=== PATIENT | female | born 1935 | race Caucasian/White ===

== ENCOUNTER 2019-01-29 14:19 | Inpatient (IN) | payer MEDICARE, BC ==
--- NOTE | 2019-01-29 15:02 | ED ---
General Adult HPI - General Chief complaint: Fall Stated complaint: Left hip injury Time Seen by Provider: 01/29/19 14:25 Source: patient, EMS, RN notes reviewed Mode of arrival: EMS Limitations: no limitations - History of Present Illness Initial comments: This is an 83-year-old female who presents to the emergency department complaining of left hip pain. Patient states she tripped and fell today and her left hip. Patient denies any head injury or neck injury. Patient denies any other area of pain. Patient states she's never had any problems with that hip in the past. But she is unable to move it now. EMS states that hip is externally rotated and shortened. - Related Data Home Medications Medication Instructions Recorded Confirmed Ascorbic Acid [Vitamin C] 1,000 mg PO HS 01/29/19 01/29/19 Aspirin EC [Ecotrin Low Dose] 81 mg PO HS 01/29/19 01/29/19 Cholecalciferol [Vitamin D3 (25 5,000 unit PO HS 01/29/19 01/29/19 Mcg = 1000 Iu)] INSULIN ASPART (NovoLOG) [NovoLOG 6 unit SQ AC-BID 01/29/19 01/29/19 (formulary)] INSULIN ASPART (NovoLOG) [NovoLOG 7 unit SQ AC-LUNCH 01/29/19 01/29/19 (formulary)] INSULIN ASPART (NovoLOG) [NovoLOG See Protocol SQ AC-TID PRN 01/29/19 01/29/19 (formulary)] Insulin Glargine [Lantus] 15 unit SQ HS 01/29/19 01/29/19 Metoprolol Tartrate [Lopressor] 12.5 mg PO HS 01/29/19 01/29/19 Simvastatin [Zocor] 20 mg PO HS 01/29/19 01/29/19 Allergies Allergy/AdvReac Type Severity Reaction Status Date / Time No Known Allergies Allergy Verified 01/29/19 15:16 Review of Systems ROS Statement: Those systems with pertinent positive or pertinent negative responses have been documented in the HPI. ROS Other: All systems not noted in ROS Statement are negative. Past Medical History Past Medical History: Atrial Fibrillation, Diabetes Mellitus, Hyperlipidemia, Hypertension History of Any Multi-Drug Resistant Organisms: None Reported Past Surgical History: Bladder Surgery Additional Past Surgical History / Comment(s): bladder suspension Past Psychological History: No Psychological Hx Reported Smoking Status: Never smoker Past Alcohol Use History: None Reported Past Drug Use History: None Reported General Exam - General Exam Comments Initial Comments: GENERAL: Patient is well-developed and well-nourished. Patient is nontoxic and well- hydrated and is in mild distress ENT: Neck is soft and supple. No significant lymphadenopathy is noted. Oropharynx is clear. Moist mucous membranes. Neck has full range of motion without eliciting any pain. EYES: The sclera were anicteric and conjunctiva were pink and moist. Extraocular movements were intact and pupils were equal round and reactive to light. Eyelids were unremarkable. PULMONARY: Unlabored respirations. Good breath sounds bilaterally. No audible rales rhonchi or wheezing was noted. CARDIOVASCULAR: There is a regular rate and rhythm without any murmurs gallops or rubs. ABDOMEN: Soft and nontender with normal bowel sounds. SKIN: Skin is clear with no lesions or rashes and otherwise unremarkable. NEUROLOGIC: Patient is alert and oriented x3. Cranial nerves II through XII are grossly intact. Motor and sensory are also intact. Normal speech, volume and content. Symmetrical smile. MUSCULOSKELETAL: Left hip is shortened and Rotated with any movement causes her quite a bit of pain. Palpation of the lateral aspect of the hip is also very tender. LYMPHATICS: No significant lymphadenopathy is noted PSYCHIATRIC: Normal psychiatric evaluation. Limitations: no limitations Course Vital Signs 01/29/19 01/29/19 14:23 17:26 Temperature 98 F 97.9 F Pulse Rate 71 72 Respiratory 18 18 Rate Blood Pressure 175/80 153/79 O2 Sat by Pulse 97 97 Oximetry Medical Decision Making - Medical Decision Making X-ray shows a left femoral neck fracture which is impacted. I spoke with the physician office manager executive assistant for [facility] and he agreed to admit the patient I admitted the patient wrote admitting orders I consulted Dr. Eagle EKG shows a normal sinus rhythm at 67 bpm MD interval is 188 QRS is 74 QT interval 36 QTC is 47. Patient's EKG shows no ST segment elevation or depression or T wave abnormalities are noted. - Lab Data Result diagrams: 01/29/19 15:50 01/29/19 15:50 Lab Results 01/29/19 01/29/19 01/29/19 Range/Units 15:50 15:50 15:50 WBC 7.8 (3.8-10.6) k/uL RBC 4.48 (3.80-5.40) m/uL Hgb 13.2 (11.4-16.0) gm/dL Hct 38.8 (34.0-46.0) % MCV 86.7 (80.0-100.0) fL MCH 29.4 (25.0-35.0) pg MCHC 33.9 (31.0-37.0) g/dL RDW 13.9 (11.5-15.5) % Plt Count 214 (150-450) k/uL Neutrophils % 74 % Lymphocytes % 14 % Monocytes % 8 % Eosinophils % 3 % Basophils % 1 % Neutrophils # 5.8 (1.3-7.7) k/uL Lymphocytes # 1.1 (1.0-4.8) k/uL Monocytes # 0.6 (0-1.0) k/uL Eosinophils # 0.2 (0-0.7) k/uL Basophils # 0.1 (0-0.2) k/uL PT 9.8 (9.0-12.0) sec INR 0.9 (<1.2) APTT 25.0 (22.0-30.0) sec Sodium 132 L (137-145) mmol/L Potassium 4.2 (3.5-5.1) mmol/L Chloride 99 (98-107) mmol/L Carbon Dioxide 25 (22-30) mmol/L Anion Gap 8 mmol/L BUN 18 H (7-17) mg/dL Creatinine 0.76 (0.52-1.04) mg/dL Est GFR (CKD-EPI)AfAm 86 (>60 ml/min/1.73 sqM) Est GFR (CKD-EPI)NonAf 74 (>60 ml/min/1.73 sqM) Glucose 98 (74-99) mg/dL Calcium 9.3 (8.4-10.2) mg/dL Total Bilirubin 0.4 (0.2-1.3) mg/dL AST 25 (14-36) U/L ALT 19 (9-52) U/L Alkaline Phosphatase 83 (38-126) U/L Total Protein 6.8 (6.3-8.2) g/dL Albumin 4.0 (3.5-5.0) g/dL Disposition Clinical Impression: Hip fracture Disposition: ADMITTED IP TO THIS [facility] Time of Disposition: 16:22
--- NOTE | 2019-01-29 15:10 | XR ---
EXAMINATION TYPE: XR Hip LT and AP Pelvis DATE OF EXAM: 01/29/2019 COMPARISON: NONE HISTORY: Pelvic and left hip pain after fall injury today. TECHNIQUE: A single AP view of the pelvis is obtained. Two views of the left hip are obtained. FINDINGS: There is acute subcapital fracture through proximal left femur with impaction of distal fr acture fragment. No hip joint dislocation is seen. Mild to moderate axial joint space loss both hips is present. Pubic symphysis is intact. Sacroiliac joints are preserved. IMPRESSION: There is acute subcapital fracture through left proximal humerus. (Initial encounter closed type post traumatic fracture)
--- NOTE | 2019-01-29 15:53 | XR ---
EXAMINATION TYPE: XR chest 1V portable DATE OF EXAM: 01/29/2019 COMPARISON: NONE HISTORY: Presurgical study. TECHNIQUE: Single AP portable frontal semiupright view of the chest is obtained. FINDINGS: There is chronic parenchymal change without suspicious focal air space opacity, pleural ef fusion, or pneumothorax seen. The cardiac silhouette size is mildly enlarged. The osseous structur es are demineralized. Underlying scoliosis in the thoracolumbar spine is present. IMPRESSION: Chronic parenchymal changes and cardiomegaly without acute pulmonary process.
[2019-01-29 15:59] LABS: Basophils # (A) 0.1 k/uL (0-0.2); Basophils % (A) 1 %; Eosinophils # (A) 0.2 k/uL (0-0.7); Eosinophils % (A) 3 %; HCT 38.8 % (34.0-46.0); HGB 13.2 gm/dL (11.4-16.0); Lymphocytes # (A) 1.1 k/uL (1.0-4.8); Lymphocytes % (A) 14 %; MCH 29.4 pg (25.0-35.0); MCHC 33.9 g/dL (31.0-37.0); MCV 86.7 fL (80.0-100.0); Mean Platelet Volume 7.7; Monocytes # (A) 0.6 k/uL (0-1.0); Monocytes % (A) 8 %; Neutrophils # (A) 5.8 k/uL (1.3-7.7); Neutrophils % (A) 74 %; Platelet Count 214 k/uL (150-450); RBC 4.48 m/uL (3.80-5.40); RDW 13.9 % (11.5-15.5); WBC 7.8 k/uL (3.8-10.6)
[2019-01-29 16:07] LABS: Calcium 9.3 mg/dL (8.4-10.2); Potassium 4.2 mmol/L (3.5-5.1); Total Bilirubin 0.4 mg/dL (0.2-1.3); Total Protein 6.8 g/dL (6.3-8.2)
[2019-01-29 16:09] LABS: INR 0.9 (<1.2); Prothrombin Time 9.8 sec (9.0-12.0)
[2019-01-29] MEDS ORDERED: SODIUM CHLORIDE 0.9% 1,000 ML IV ONE (16:22)
[2019-01-29 17:08] LABS: Glucose,Whole Blood 89 mg/dL (75-99)
[2019-01-29] MEDS: HYDROmorphone 0.5 MG/0.5 ML SYRINGE IVP PRN (18:06)
[2019-01-29 20:35] LABS: Glucose,Whole Blood 150 mg/dL (75-99)
[2019-01-30] MEDS: HYDROmorphone 0.5 MG/0.5 ML SYRINGE IVP PRN ×3 (01:37→21:31)
[2019-01-30 07:47] LABS: Glucose,Whole Blood 218 mg/dL (75-99)
[2019-01-30 07:55] LABS: Basophils % (A) 1 %; Eosinophils # (A) 0.2 k/uL (0-0.7); Eosinophils % (A) 3 %; HCT 36.9 % (34.0-46.0); HGB 12.3 gm/dL (11.4-16.0); Lymphocytes # (A) 0.8 k/uL (1.0-4.8); Lymphocytes % (A) 11 %; MCH 29.4 pg (25.0-35.0); MCHC 33.2 g/dL (31.0-37.0); MCV 88.6 fL (80.0-100.0); Mean Platelet Volume 7.9; Monocytes # (A) 0.6 k/uL (0-1.0); Monocytes % (A) 9 %; Neutrophils # (A) 5.5 k/uL (1.3-7.7); Neutrophils % (A) 76 %; Platelet Count 177 k/uL (150-450); RBC 4.17 m/uL (3.80-5.40); RDW 14.7 % (11.5-15.5); WBC 7.3 k/uL (3.8-10.6)
[2019-01-30 08:24] LABS: Albumin 3.3 g/dL (3.5-5.0); Calcium 8.7 mg/dL (8.4-10.2); Potassium 4.8 mmol/L (3.5-5.1); Total Bilirubin 1.1 mg/dL (0.2-1.3); Total Protein 5.9 g/dL (6.3-8.2)
--- NOTE | 2019-01-30 08:57 | P.HPOR ---
History of Present Illness H&P Date: 01/30/19 Chief Complaint: Left hip fracture Patient is an 83-year-old female seen at bedside this am. She presented to the emergency department yesterday complaining of left hip pain. Patient states she tripped and fell on her left hip. Patient denies any head injury or neck injury. Patient denies any other area of pain. Patient states she's never had any problems with that hip in the past. Xrays in the ED showed a left femoral neck fracture shortened and displaced. ROS are negative Review of Systems All systems: negative Constitutional: Denies chills, Denies fever Eyes: denies blurred vision, denies pain Ears, nose, mouth and throat: Denies headache, Denies sore throat Cardiovascular: Denies chest pain, Denies shortness of breath Respiratory: Denies cough Gastrointestinal: Denies abdominal pain, Denies diarrhea, Denies nausea, Denies vomiting Genitourinary: Denies dysuria, Denies hematuria Musculoskeletal: Denies myalgias Integumentary: Denies pruritus, Denies rash Neurological: Denies numbness, Denies weakness Psychiatric: Denies anxiety, Denies depression Endocrine: Denies fatigue, Denies weight change Past Medical History Past Medical History: Atrial Fibrillation, Diabetes Mellitus, Hyperlipidemia, Hypertension Additional Past Medical History / Comment(s): a-fib once 15 years ago, left hip fx History of Any Multi-Drug Resistant Organisms: None Reported Past Surgical History: Bladder Surgery Additional Past Surgical History / Comment(s): bladder suspension, heart cath 15 years ago Past Psychological History: No Psychological Hx Reported Smoking Status: Never smoker Past Alcohol Use History: None Reported Past Drug Use History: None Reported Medications and Allergies Home Medications Medication Instructions Recorded Confirmed Type Ascorbic Acid [Vitamin C] 1,000 mg PO HS 01/29/19 01/29/19 History Aspirin EC [Ecotrin Low Dose] 81 mg PO HS 01/29/19 01/29/19 History Cholecalciferol [Vitamin D3 (25 5,000 unit PO HS 01/29/19 01/29/19 History Mcg = 1000 Iu)] INSULIN ASPART (NovoLOG) [NovoLOG 6 unit SQ AC-BID 01/29/19 01/29/19 History (formulary)] INSULIN ASPART (NovoLOG) [NovoLOG 7 unit SQ AC-LUNCH 01/29/19 01/29/19 History (formulary)] INSULIN ASPART (NovoLOG) [NovoLOG See Protocol SQ AC-TID PRN 01/29/19 01/29/19 History (formulary)] Insulin Glargine [Lantus] 15 unit SQ HS 01/29/19 01/29/19 History Metoprolol Tartrate [Lopressor] 12.5 mg PO HS 01/29/19 01/29/19 History Simvastatin [Zocor] 20 mg PO HS 01/29/19 01/29/19 History Allergies Allergy/AdvReac Type Severity Reaction Status Date / Time No Known Allergies Allergy Verified 01/29/19 17:58 Physical Examination LLE Inspections shows a shortened and externally rotated left leg. Any movement causes her quite a bit of pain. ROM is not tested due to fracture. Palpation of the lateral aspect of the hip is also very tender. No wounds. NVI. Calf is SNT Results - Labs Labs: Abnormal Lab Results - Last 24 Hours (Table) 01/29/19 01/29/19 01/30/19 Range/Units 15:50 20:24 07:30 Lymphocytes # (1.0-4.8) k/uL Sodium 132 L (137-145) mmol/L Chloride (98-107) mmol/L BUN 18 H (7-17) mg/dL Glucose (74-99) mg/dL POC Glucose (mg/dL) 150 H 218 H (75-99) mg/dL Total Protein (6.3-8.2) g/dL Albumin (3.5-5.0) g/dL 01/30/19 01/30/19 Range/Units 07:36 07:36 Lymphocytes # 0.8 L (1.0-4.8) k/uL Sodium 129 L (137-145) mmol/L Chloride 97 L (98-107) mmol/L BUN (7-17) mg/dL Glucose 226 H (74-99) mg/dL POC Glucose (mg/dL) (75-99) mg/dL Total Protein 5.9 L (6.3-8.2) g/dL Albumin 3.3 L (3.5-5.0) g/dL H & H 01/29/19 01/30/19 Range/Units 15:50 07:36 Hgb 13.2 12.3 (11.4-16.0) gm/dL Hct 38.8 36.9 (34.0-46.0) % Coagulation 01/29/19 Range/Units 15:50 INR 0.9 (<1.2) Result Diagrams: 01/30/19 07:36 01/30/19 07:36 - Diagnostic results Hip x-ray: report reviewed, image reviewed Assessment and Plan (1) Hip fracture Narrative/Plan: Plan is to proceed with surgical intervention including a left hip hemiarthroplasy. Medical has been requested for pre op clearance. She has been NPO. Procedure and consent obtained. She would like to proceed. Current Visit: Yes Status: Acute Code(s): S72.009A - FRACTURE OF UNSP PART OF NECK OF UNSP FEMUR, INIT SNOMED Code(s): 862004651 Time with Patient: Less than 30
[2019-01-30] MEDS: INSULIN ASPART (NovoLOG) 100 UNIT/ML VIAL SQ SCH ×3 (09:46→21:31)
--- NOTE | 2019-01-30 12:00 | P.CONS ---
History of Present Illness - Reason for Consult Consult date: 01/30/19 medical management surgical clearance Requesting physician: Phil Drummond - History of Present Illness This is an 83-year-old female patient of Dr. Samuel. Patient presented to ER after sustaining a fall. Patient reports she was playing bridge when she tripped over some increased pain and landed on her left hip. Patient denies hitting her head or loss of consciousness. Patient denies any dizziness prior to episode. Hip x-ray completed showing acute subcapital fracture through left proximal humerus. Patient reports that she had episode of A. fib approximately 15 years ago. Patient reports that she was not placed on anticoagulation and never had an occurrence again. Additional history includes diabetes mellitus in which he follows with endocrinology, hyperlipidemia and hypertension. Patient denies any history of cardiac conditions. Patient denies history of CHF,COPD or asthma. Patient denies smoking. At this time patient denies any chest pain or shortness of breath. Patient denies nausea vomiting or diarrhea. Patient denies any urinary burning or frequency. Patient low grade temp of 99.9 throughout night this is likely reactive. Chest x-ray completed showing chronic parenchymal changes and cardiomegaly without acute pulmonary process. EKG completed showing some normal sinus rhythm voltage criteria for left ventricular hypertrophy. Urinary analysis has been ordered. orthopedic services have been consulted planning left hip gypsy arthroplasty today. Review of Systems Please refer to HPI otherwise unremarkable Past Medical History Past Medical History: Atrial Fibrillation, Diabetes Mellitus, Hyperlipidemia, Hypertension Additional Past Medical History / Comment(s): a-fib once 15 years ago, left hip fx History of Any Multi-Drug Resistant Organisms: None Reported Past Surgical History: Bladder Surgery Additional Past Surgical History / Comment(s): bladder suspension, heart cath 15 years ago Past Psychological History: No Psychological Hx Reported Smoking Status: Never smoker Past Alcohol Use History: None Reported Past Drug Use History: None Reported Medications and Allergies Home Medications Medication Instructions Recorded Confirmed Type Ascorbic Acid [Vitamin C] 1,000 mg PO HS 01/29/19 01/29/19 History Aspirin EC [Ecotrin Low Dose] 81 mg PO HS 01/29/19 01/29/19 History Cholecalciferol [Vitamin D3 (25 5,000 unit PO HS 01/29/19 01/29/19 History Mcg = 1000 Iu)] INSULIN ASPART (NovoLOG) [NovoLOG 6 unit SQ AC-BID 01/29/19 01/29/19 History (formulary)] INSULIN ASPART (NovoLOG) [NovoLOG 7 unit SQ AC-LUNCH 01/29/19 01/29/19 History (formulary)] INSULIN ASPART (NovoLOG) [NovoLOG See Protocol SQ AC-TID PRN 01/29/19 01/29/19 History (formulary)] Insulin Glargine [Lantus] 15 unit SQ HS 01/29/19 01/29/19 History Metoprolol Tartrate [Lopressor] 12.5 mg PO HS 01/29/19 01/29/19 History Simvastatin [Zocor] 20 mg PO HS 01/29/19 01/29/19 History Allergies Allergy/AdvReac Type Severity Reaction Status Date / Time No Known Allergies Allergy Verified 01/29/19 17:58 Physical Exam Vitals: Vital Signs Temp Pulse Pulse Resp BP BP Pulse Ox 01/30/19 07:00 98.7 F 69 13 123/68 94 L 01/30/19 01:02 99.9 F H 63 18 122/70 91 L 01/29/19 19:24 98.2 F 72 18 164/92 96 01/29/19 17:26 97.9 F 72 18 153/79 97 01/29/19 14:23 98 F 71 18 175/80 97 Intake and Output 01/29/19 01/30/19 01/30/19 22:59 06:59 14:59 Intake Total 250 Output Total 1600 500 500 Balance -1350 -500 -500 Intake: Oral 250 Output: Urine 1600 500 500 Other: Voiding Method Indwelling Catheter Indwelling Catheter Head normocephalic Neck supple Lungs clear to auscultation bilaterally no wheezing or crackles Heart regular rate and rhythm S1-S2, no rub or gallop Abdomen is soft nontender nondistended positive bowel sounds no hepatos plenomegaly Extremities no edema Neuro alert and orientated to 3 Results CBC & Chem 7: 01/30/19 07:36 01/30/19 07:36 Labs: Abnormal Lab Results - Last 24 Hours (Table) 01/29/19 01/29/19 01/30/19 Range/Units 15:50 20:24 07:30 Lymphocytes # (1.0-4.8) k/uL Sodium 132 L (137-145) mmol/L Chloride (98-107) mmol/L BUN 18 H (7-17) mg/dL Glucose (74-99) mg/dL POC Glucose (mg/dL) 150 H 218 H (75-99) mg/dL Total Protein (6.3-8.2) g/dL Albumin (3.5-5.0) g/dL 01/30/19 01/30/19 Range/Units 07:36 07:36 Lymphocytes # 0.8 L (1.0-4.8) k/uL Sodium 129 L (137-145) mmol/L Chloride 97 L (98-107) mmol/L BUN (7-17) mg/dL Glucose 226 H (74-99) mg/dL POC Glucose (mg/dL) (75-99) mg/dL Total Protein 5.9 L (6.3-8.2) g/dL Albumin 3.3 L (3.5-5.0) g/dL Assessment and Plan Assessment: 1. Left hip fracture status post fall. Surgical services planning left hip hemiarthroplasty 2. History of diabetes mellitus type 2. Home long-acting medication has been ordered along with sliding scale coverage. Patient reports she does follow with endocrinology. Last hemoglobin A1c 2 weeks ago 8.0 3. History of atrial fibrillation possibly 15 years ago. Patient reports this was an isolated incident did not require anticoagulation no further episodes. EKG completed in ER showing normal sinus rhythm. Voltage criteria for left ventricular hypertrophy 4. History of hyperlipidemia 5. History of essential hypertension 6. Low-grade fever. Chest x-ray completed in ER showing chronic parenchymal changes and cardiomegaly without acute pulmonary process. Urinary analysis has been ordered 7. Hyponatremia. Sodium low at 129. Continue normal saline at 50. We'll continue to monitor closely Thank you for this consultation we will continue to follow patient closely throughout stay Time with Patient: Greater than 30 (Greater than 60% of the total time spent in counseling and coordination of care. I performed an examination of the patient and discussed their management with the Nurse Practitioner. I have reviewed the Nurse Practitioner's notes and agree with the documented findings and plan of care)
[2019-01-30 12:14] LABS: Glucose,Whole Blood 169 mg/dL (75-99)
[2019-01-30 12:31] LABS: Appearance,Urine Clear (Clear); Bacteria,Urine Rare /hpf; Bilirubin,Urine Negative (Negative); Blood,Urine Trace (Negative); Color,Urine Light Yellow; Glucose,Urine (UA) 2+ (Negative); Leukocyte Esterase,Urine Small (Negative); Mucus,Urine Rare /hpf; Nitrite,Urine Negative (Negative); PH, Urine 5.5 (5.0-8.0); Protein,Urine Negative (Negative); RBC,Urine 3 /hpf (0-5); Squamous Epithelial Cell,Urine <1 /hpf (0-4); Urobilinogen,Urine <2.0 mg/dL (<2.0)
[2019-01-30 13:00] LABS: Ketones,Urine 2+ (Negative)
[2019-01-30] MEDS ORDERED: IV FLUID CONTINUATION 375 ML IV ONE (13:59)
[2019-01-30 14:28] LABS: Glucose,Whole Blood 169 mg/dL (75-99)
[2019-01-30] MEDS ORDERED: ceFAZolin 2 GM in SODIUM CHLORIDE 0.9% 100 ML IVPB ONE (15:07)
[2019-01-30] MEDS ORDERED: ceFAZolin IN SWFI 2 GM/20 ML SYRINGE IVP ONE (15:15)
[2019-01-30] MEDS ORDERED: KETAMINE 10 MG/ML 20 ML VIAL ONE (15:29)
[2019-01-30] MEDS ORDERED: fentaNYL (PF) 50 MCG/ML 2 ML AMP ONE (15:29)
[2019-01-30] MEDS ORDERED: MIDAZOLAM 2 MG/2 ML VIAL ONE (15:29)
[2019-01-30] MEDS ORDERED: NALOXONE 0.4 MG/ML 1 ML VIAL IV PRN (15:31)
[2019-01-30] MEDS ORDERED: MAGNESIUM HYDROXIDE 2,400 MG/10 ML CUP PO PRN (15:31)
[2019-01-30] MEDS ORDERED: DIAZEPAM 5 MG TAB PO PRN (15:31)
[2019-01-30] MEDS ORDERED: HYDROcodone/APAP 7.5-325MG 1 EACH TAB PO PRN (15:31)
[2019-01-30] MEDS ORDERED: HYDROmorphone 0.5 MG/0.5 ML SYRINGE IVP PRN ×3 (15:31)
[2019-01-30] MEDS ORDERED: TEMAZEPAM 15 MG CAP PO PRN (15:31)
[2019-01-30] MEDS ORDERED: ONDANSETRON 4 MG/2 ML VIAL IVP PRN (15:31)
[2019-01-30] MEDS ORDERED: LACTATED RINGERS 1,000 ML IV ONE (15:55)
[2019-01-30] MEDS ORDERED: ceFAZolin 3,000 MG in SODIUM CHLORIDE 0.9% IRRIGATIO 3,000 ML IRRIGATION ONE (16:04)
[2019-01-30 17:38] LABS: Glucose,Whole Blood 161 mg/dL (75-99)
[2019-01-30] MEDS: LACTATED RINGERS 1,000 ML IV SCH ×2 (18:11→20:24)
--- NOTE | 2019-01-30 18:11 | XR ---
PROCEDURE: XR Hip Limited LT - one view DATE AND TIME: 01/30/2019 5:39 PM CLINICAL INDICATION: PHH; Status post hip surgery, assess surgical alignment TECHNIQUE: Department protocol COMPARISON: None FINDINGS: Postoperative left hip AP view shows anatomic position and alignment of the left hip prosth esis. Postprocedure changes noted. No unexpected findings. IMPRESSION: Postoperative left hip one view
[2019-01-30 20:11] LABS: Glucose,Whole Blood 206 mg/dL (75-99)
[2019-01-30] MEDS: SENNOSIDES-DOCUSATE SODIUM 1 EACH TAB PO SCH (20:21)
[2019-01-30] MEDS: ASCORBIC ACID 500 MG TAB PO SCH (20:21)
[2019-01-30] MEDS: CHOLECALCIFEROL 1,000 UNIT TAB PO SCH (20:21)
[2019-01-30] MEDS: ASPIRIN 325 MG TAB PO SCH (20:21)
[2019-01-30] MEDS: ATORVASTATIN 10 MG TAB PO SCH (20:21)
[2019-01-30] MEDS ORDERED: METOPROLOL TARTRATE 12.5 MG TAB PO SCH (21:00)
[2019-01-30] MEDS: INSULIN DETEMIR (LEVEMIR) 100 UNIT/ML SYR SQ SCH (21:31)
[2019-01-30 21:37] LABS: Glucose,Whole Blood 212 mg/dL (75-99)
[2019-01-30] MEDS: ceFAZolin IN SWFI 2 GM/20 ML SYRINGE IVP SCH (23:31)
--- NOTE | 2019-01-31 01:09 | OP ---
OPERATIVE REPORT DATE OF PROCEDURE: 01/30/2019. PREOPERATIVE DIAGNOSIS: Left displaced femoral neck fracture. POSTOPERATIVE DIAGNOSIS: Left displaced femoral neck fracture. PROCEDURE PERFORMED: Left hip hemiarthroplasty. SURGEON: Phil Drummond MD. TANK CAR MECHANIC: Alfredito WATTS. ANESTHESIA: Spinal with sedation. ESTIMATED BLOOD LOSS: 100 mL. TOURNIQUET: None. DRAINS: None. COMPLICATIONS: None apparent. DISPOSITION: Postanesthesia care unit. INDICATIONS: Paris is a very pleasant 83-year-old female who was playing cards yesterday with her friends and tripped over another friend's cane and fell onto her left hip. She had immediate left hip pain. She was brought via ambulance to [facility]. Workup including x-rays revealed a left displaced femoral neck fracture. She was admitted to in. She does live independently. Recommendation was for a left hip hemiarthroplasty. She was cleared for surgery by the Internal Medicine service as well. The risks of the procedure were discussed with her in detail. These risks include, but are not limited to risk of infection, nerve damage, bleeding, pain, and a small risk of deep vein thrombosis which could lead to fatal pulmonary embolism. Further risks include instability, future instability in the hip and periprosthetic fracture. All of the risks were discussed with both Paris and her daughter. All of their questions were answered to their satisfaction. Appropriate informed consent was obtained. DESCRIPTION OF THE PROCEDURE: Patient identified in preop holding area. Surgical site was marked by both the patient and myself. She was given 2 g of Ancef IV for prophylactic purposes. She was then transported to the operative suite. She was placed supine on the operative table. A spinal anesthetic was then administered and dosed per the anesthesia without apparent complication. She was then placed into the right lateral decubitus position well- padded in preparation for surgery. A well-padded axillary roll was placed. Her legs were appropriately padded as well. The patient's left lower extremity then prepped and draped in usual sterile fashion. Standard surgical pause undertaken to ensure that we were operating the correct site and that appropriate preoperative antibiotics were given. All staff in the room in agreement we proceeded. The tip of the greater trochanter was identified. An approximate 10-12 cm incision centered over the greater trochanter in line with the femur was then marked surgical pen. The incision was then made with a 10 blade scalpel. Dissection carried down sharply to the tensor fascia. Hemostasis was achieved with electrocautery. The tensor fascia was then incised in line with the incision. This exposed the underlying trochanteric bursa. A Charnley retractor was then placed. The raphe between the anterior 1/3 and posterior 2/3 of the gluteus medius was identified. I then split the raphae between the anterior 3rd and posterior 2/3 of the gluteus medius and then down the lateral aspect of the femur for anterolateral Hardinge type approach. This exposed the capsule was then incised as well. This exposed the femoral neck fracture. I then utilized a reciprocating saw to freshen the femoral neck cut. The guide was utilized to a template the cut. I then utilized the corkscrew to remove the solomon femoral head. This was measured as a size 45. The acetabulum was then thoroughly inspected. The acetabular cartilage was in excellent condition. There was no evidence of fracture. There were no loose bodies noted within the acetabulum. I then utilized a size 45 trial. This was placed on the lollipop. Had an excellent suction fit within the acetabulum. I then proceeded with preparation of the proximal femur. The leg was then flexed, externally rotated or across the table. This exposed the proximal femur. I utilized a box spring frame builder to gain entrance to the femoral canal. Starting reamer was then utilized. I then reamed the femoral canal starting with a size 7 up to a size 9 reamer. I then proceeded with broaching the proximal femur. I started with a size 7 broach and incrementally increased up to a size 9 broach. This had an excellent fit. I then proceeded with trialing. I started with a -3 neck and a 45 monopolar head. This was placed onto the broach and then the hip was reduced. It was very stable throughout a full range of motion. The leg lengths were approximately equal. There was very minimal Shuck. Again, it was stable throughout a full range of motion. The hip was then redislocated very carefully. I decided to go forward with a -3 neck 9 stem and a 45 monopolar head. The [employer] personnel representative then opened a Bimetric collared size 9 stem, a -3 neck and a 45 monopolar head. The stem was then impacted into the canal in approximately 10-15 degrees of anteversion. An excellent fit. The minus the Alberts taper was then placed onto the head on the back table and then it was impacted onto a dried stem. The head was then impacted into place. The hip was then reduced. Again, the leg lengths were approximately equal. It was taken through full range of motion. It was very stable. There was very minimal Shuck. We then proceeded with closure. The wound was thoroughly irrigated with sterile saline solution with antibiotic added via pulse lavage. Again, hemostasis was achieved with electrocautery. The gluteus medius, gluteus minimus and anterior capsule were then repaired back to the anterolateral greater trochanter with #5 transosseous Ethibond sutures. The raphae between the anterior 3rd and posterior 2/3 of the gluteus medius were then was then closed with a 0-Vicryl interrupted suture. The Charnley retractor was then removed. The tensor fascia was then repaired with a running #3 Quill suture. Again the wound was thoroughly irrigated with sterile saline solution with antibiotic added. The subcutaneous tissue was closed with 2-0 Vicryl interrupted suture. The skin was closed with a running 3-0 Quill suture. Dermabond was then applied to the incision. Sterile compressive dressing was then applied. The patient's lower extremities were then placed into a hip abduction pillow. All sponge and needle counts were deemed correct prior to closure. The patient tolerated the procedure without apparent complication. She was transferred recovery room in stable conditions. YELENA / PRAVIN: [id number] /
[2019-01-31] MEDS: HYDROmorphone 0.5 MG/0.5 ML SYRINGE IVP PRN ×2 (01:43→07:16)
[2019-01-31 07:13] LABS: Glucose,Whole Blood 188 mg/dL (75-99)
[2019-01-31] MEDS: INSULIN ASPART (NovoLOG) 100 UNIT/ML VIAL SQ SCH ×4 (07:21→20:52)
[2019-01-31 08:53] LABS: Basophils % (A) 0 %; Eosinophils # (A) 0.1 k/uL (0-0.7); Eosinophils % (A) 1 %; HCT 28.8 % (34.0-46.0); Lymphocytes # (A) 0.7 k/uL (1.0-4.8); Lymphocytes % (A) 9 %; MCH 29.8 pg (25.0-35.0); MCHC 33.6 g/dL (31.0-37.0); MCV 88.7 fL (80.0-100.0); Monocytes # (A) 0.8 k/uL (0-1.0); Monocytes % (A) 10 %; Neutrophils # (A) 6.3 k/uL (1.3-7.7); Neutrophils % (A) 78 %; Platelet Count 169 k/uL (150-450); RBC 3.25 m/uL (3.80-5.40); RDW 14.7 % (11.5-15.5)
[2019-01-31 08:59] LABS: Albumin 2.5 g/dL (3.5-5.0); Potassium 4.3 mmol/L (3.5-5.1); Total Bilirubin 0.7 mg/dL (0.2-1.3); Total Protein 4.8 g/dL (6.3-8.2)
[2019-01-31 09:02] LABS: HGB 9.7 gm/dL (11.4-16.0)
[2019-01-31] MEDS: traMADol 50 MG TAB PO PRN ×2 (09:16→14:25)
[2019-01-31] MEDS: ASPIRIN 325 MG TAB PO SCH (09:17)
[2019-01-31] MEDS: ceFAZolin IN SWFI 2 GM/20 ML SYRINGE IVP SCH (09:17)
--- NOTE | 2019-01-31 09:59 | P.PN ---
Subjective Progress Note Date: 01/31/19 Principal diagnosis: S/P left hip hemiarthroplasty for left hip fracture Patient is seen at bedside this morning. She is postop day #1 from left hip hemiarthroplasty. She has pain at the surgical site as expected but denies any new complaints. She denies numbness, tingling or calf pain. Review of systems is negative for fever, chills, chest pain, shortness of breath or other Objective - Vital Signs Vital signs: Vital Signs Temp 99.3 F 01/31/19 07:35 Pulse 126 H 01/31/19 07:35 Resp 16 01/31/19 07:35 BP 103/76 01/31/19 07:35 Pulse Ox 93 L 01/31/19 07:35 Intake & Output 01/30/19 01/31/19 01/31/19 18:59 06:59 18:59 Intake Total 1776 300 Output Total 1050 350 Balance 726 -50 Intake: IV 976 Intake, IV Titration 600 300 Amount Lactated Ringers 1,000 ml 300 @ 50 mls/hr IV .Q20H [facility] Rx#:[id number] Sodium Chloride 0.9% 1, 600 000 ml @ 75 mls/hr IV . [id number] ONE Rx#:[id number] Oral 200 Output: Urine 950 350 Estimated Blood Loss 100 Other: Voiding Method Indwelling Catheter Indwelling Catheter Indwelling Catheter - Exam Inspection reveals a benign surgical wound. There is no active bleeding or drainage. Neurovascular status is intact throughout the lower extremity with motor and sensation fully intact. Calf is soft and nontender. 2+ dorsalis pedis pulse and less than 2 second cap refill is present. - Constitutional General appearance: Present: no acute distress - Labs CBC & Chem 7: 01/31/19 08:28 01/31/19 08:28 Labs: Abnormal Lab Results - Last 24 Hours (Table) 01/30/19 01/30/19 01/30/19 Range/Units 11:45 12:00 14:24 RBC (3.80-5.40) m/uL Hgb (11.4-16.0) gm/dL Hct (34.0-46.0) % Lymphocytes # (1.0-4.8) k/uL Sodium (137-145) mmol/L Chloride (98-107) mmol/L Carbon Dioxide (22-30) mmol/L BUN (7-17) mg/dL Glucose (74-99) mg/dL POC Glucose (mg/dL) 169 H 169 H (75-99) mg/dL Calcium (8.4-10.2) mg/dL Total Protein (6.3-8.2) g/dL Albumin (3.5-5.0) g/dL Urine Glucose (UA) 2+ H (Negative) Urine Ketones 2+ H (Negative) Urine Blood Trace H (Negative) Ur Leukocyte Esterase Small H (Negative) Urine WBC 9 H (0-5) /hpf Urine Bacteria Rare H (None) /hpf Urine Mucus Rare H (None) /hpf 01/30/19 01/30/19 01/30/19 Range/Units 17:34 20:10 21:25 RBC (3.80-5.40) m/uL Hgb (11.4-16.0) gm/dL Hct (34.0-46.0) % Lymphocytes # (1.0-4.8) k/uL Sodium (137-145) mmol/L Chloride (98-107) mmol/L Carbon Dioxide (22-30) mmol/L BUN (7-17) mg/dL Glucose (74-99) mg/dL POC Glucose (mg/dL) 161 H 206 H 212 H (75-99) mg/dL Calcium (8.4-10.2) mg/dL Total Protein (6.3-8.2) g/dL Albumin (3.5-5.0) g/dL Urine Glucose (UA) (Negative) Urine Ketones (Negative) Urine Blood (Negative) Ur Leukocyte Esterase (Negative) Urine WBC (0-5) /hpf Urine Bacteria (None) /hpf Urine Mucus (None) /hpf 01/31/19 01/31/19 01/31/19 Range/Units 06:58 08:28 08:28 RBC 3.25 L (3.80-5.40) m/uL Hgb 9.7 L D (11.4-16.0) gm/dL Hct 28.8 L (34.0-46.0) % Lymphocytes # 0.7 L (1.0-4.8) k/uL Sodium 124 L (137-145) mmol/L Chloride 97 L (98-107) mmol/L Carbon Dioxide 20 L (22-30) mmol/L BUN 20 H (7-17) mg/dL Glucose 324 H (74-99) mg/dL POC Glucose (mg/dL) 188 H (75-99) mg/dL Calcium 8.0 L (8.4-10.2) mg/dL Total Protein 4.8 L (6.3-8.2) g/dL Albumin 2.5 L (3.5-5.0) g/dL Urine Glucose (UA) (Negative) Urine Ketones (Negative) Urine Blood (Negative) Ur Leukocyte Esterase (Negative) Urine WBC (0-5) /hpf Urine Bacteria (None) /hpf Urine Mucus (None) /hpf Assessment and Plan (1) Hip fracture Narrative/Plan: She will continue with routine postop orthopedic protocol including pain management, wound care, PT, DVT prophylaxis and medical management. Expect that she will transfer to ECF in next few days Current Visit: Yes Status: Acute Code(s): S72.009A - FRACTURE OF UNSP PART OF NECK OF UNSP FEMUR, INIT SNOMED Code(s): 441488507 Time with Patient: Less than 30
--- NOTE | 2019-01-31 10:22 | P.PN ---
Subjective Progress Note Date: 01/31/19 This is an 83-year-old female patient of Dr. Samuel. Patient presented to ER after sustaining a fall. Patient reports she was playing bridge when she tripped over some increased pain and landed on her left hip. Patient denies hitting her head or loss of consciousness. Patient denies any dizziness prior to episode. Hip x-ray completed showing acute subcapital fracture through left proximal humerus. Patient reports that she had episode of A. fib approximately 15 years ago. Patient reports that she was not placed on anticoagulation and never had an occurrence again. Additional history includes diabetes mellitus in which he follows with endocrinology, hyperlipidemia and hypertension. Patient denies any history of cardiac conditions. Patient denies history of CHF,COPD or asthma. Patient denies smoking. At this time patient denies any chest pain or shortness of breath. Patient denies nausea vomiting or diarrhea. Patient denies any urinary burning or frequency. Patient low grade temp of 99.9 throughout night this is likely reactive. Chest x-ray completed showing chronic parenchymal changes and cardiomegaly without acute pulmonary process. EKG completed showing some normal sinus rhythm voltage criteria for left ventricular hypertrophy. Urinary analysis has been ordered. orthopedic services have been consulted planning left hip gypsy arthroplasty today. On 01/31/2019 patient is alert and oriented 3. Patient reports she feels well after surgery. Upon auscultation patient was found to have elevated heart rate possibly irregular. EKG has been ordered orders for telemetry placed. EKG that was completed yesterday showed normal sinus rhythm. Patient denies any feeling of palpitations or heart racing. Patient denies shortness of breath. Patient's sodium also at 124 continue normal saline at 75. At this time patient denies nausea vomiting or diarrhea. Patient denies chest pain or shortness of breath. Patient denies any urinary burning or frequency. Objective - Vital Signs Vital signs: Vital Signs Temp 99.3 F 01/31/19 07:35 Pulse 126 H 01/31/19 07:35 Resp 16 01/31/19 07:35 BP 103/76 01/31/19 07:35 Pulse Ox 93 L 01/31/19 07:35 Intake & Output 01/30/19 01/31/19 01/31/19 18:59 06:59 18:59 Intake Total 1776 300 Output Total 1050 350 Balance 726 -50 Intake: IV 976 Intake, IV Titration 600 300 Amount Lactated Ringers 1,000 ml 300 @ 50 mls/hr IV .Q20H [facility] Rx#:[id number] Sodium Chloride 0.9% 1, 600 000 ml @ 75 mls/hr IV . [id number] [facility] Rx#:[id number] Oral 200 Output: Urine 950 350 Estimated Blood Loss 100 Other: Voiding Method Indwelling Catheter Indwelling Catheter Indwelling Catheter - Exam Head normocephalic Neck supple Lungs clear to auscultation bilaterally no wheezing or crackles Heart Irregular elevated HR Abdomen is soft nontender nondistended positive bowel sounds no hepatosplenomegaly Extremities no edema. Left hip dressing clean dry and intact Neuro alert and orientated to 3 - Labs CBC & Chem 7: 01/31/19 08:28 01/31/19 08:28 Labs: Abnormal Lab Results - Last 24 Hours (Table) 01/30/19 01/30/19 01/30/19 Range/Units 11:45 12:00 14:24 RBC (3.80-5.40) m/uL Hgb (11.4-16.0) gm/dL Hct (34.0-46.0) % Lymphocytes # (1.0-4.8) k/uL Sodium (137-145) mmol/L Chloride (98-107) mmol/L Carbon Dioxide (22-30) mmol/L BUN (7-17) mg/dL Glucose (74-99) mg/dL POC Glucose (mg/dL) 169 H 169 H (75-99) mg/dL Calcium (8.4-10.2) mg/dL Total Protein (6.3-8.2) g/dL Albumin (3.5-5.0) g/dL Urine Glucose (UA) 2+ H (Negative) Urine Ketones 2+ H (Negative) Urine Blood Trace H (Negative) Ur Leukocyte Esterase Small H (Negative) Urine WBC 9 H (0-5) /hpf Urine Bacteria Rare H (None) /hpf Urine Mucus Rare H (None) /hpf 01/30/19 01/30/19 01/30/19 Range/Units 17:34 20:10 21:25 RBC (3.80-5.40) m/uL Hgb (11.4-16.0) gm/dL Hct (34.0-46.0) % Lymphocytes # (1.0-4.8) k/uL Sodium (137-145) mmol/L Chloride (98-107) mmol/L Carbon Dioxide (22-30) mmol/L BUN (7-17) mg/dL Glucose (74-99) mg/dL POC Glucose (mg/dL) 161 H 206 H 212 H (75-99) mg/dL Calcium (8.4-10.2) mg/dL Total Protein (6.3-8.2) g/dL Albumin (3.5-5.0) g/dL Urine Glucose (UA) (Negative) Urine Ketones (Negative) Urine Blood (Negative) Ur Leukocyte Esterase (Negative) Urine WBC (0-5) /hpf Urine Bacteria (None) /hpf Urine Mucus (None) /hpf 01/31/19 01/31/19 01/31/19 Range/Units 06:58 08:28 08:28 RBC 3.25 L (3.80-5.40) m/uL Hgb 9.7 L D (11.4-16.0) gm/dL Hct 28.8 L (34.0-46.0) % Lymphocytes # 0.7 L (1.0-4.8) k/uL Sodium 124 L (137-145) mmol/L Chloride 97 L (98-107) mmol/L Carbon Dioxide 20 L (22-30) mmol/L BUN 20 H (7-17) mg/dL Glucose 324 H (74-99) mg/dL POC Glucose (mg/dL) 188 H (75-99) mg/dL Calcium 8.0 L (8.4-10.2) mg/dL Total Protein 4.8 L (6.3-8.2) g/dL Albumin 2.5 L (3.5-5.0) g/dL Urine Glucose (UA) (Negative) Urine Ketones (Negative) Urine Blood (Negative) Ur Leukocyte Esterase (Negative) Urine WBC (0-5) /hpf Urine Bacteria (None) /hpf Urine Mucus (None) /hpf Assessment and Plan Assessment: 1. Left hip fracture status post fall. Status post left hip hemiarthroplasty. Patient on aspirin 325 twice a day for DVT prophylaxis for surgery pain meds per with surgery 2. New-onset A. fib with RVR. Patient does reports she had incident of A. fib proximally 15 years ago at that time patient was not started on medication anticoagulation. Per nursing staff EKG showing A. fib with RVR heart rate in the 120s. Patient is asymptomatic. Will consult cardiology services. TSH and magnesium level have been ordered 3. History of diabetes mellitus type 2. Home long-acting medication has been ordered along with sliding scale coverage. Patient reports she does follow with endocrinology. Last hemoglobin A1c 2 weeks ago 8.0 4. History of atrial fibrillation possibly 15 years ago. Patient reports this was an isolated incident did not require anticoagulation no further episodes. EKG completed in ER showing normal sinus rhythm. Voltage criteria for left ventricular hypertrophy 5. History of hyperlipidemia 6. History of essential hypertension 7. Urinary tract infection. UA showing small amount of leukocyte Estrace. Patients are Rocephin. Urine culture ordered 8. Hyponatremia. Sodium low at 124. Continue normal saline at 75 Thank you for this consultation we will continue to follow patient closely throughout stay I performed an examination of the patient and discussed their management with the Nurse Practitioner. I have reviewed the Nurse Practitioner's notes and agree with the documented findings and plan of care
[2019-01-31] MEDS ORDERED: METOPROLOL TARTRATE 12.5 MG TAB PO STA (10:59)
[2019-01-31] MEDS ORDERED: SODIUM CHLORIDE 0.9% 500 ML 500 ML IV ONE (11:00)
[2019-01-31 11:33] LABS: Glucose,Whole Blood 278 mg/dL (75-99)
--- NOTE | 2019-01-31 12:28 | CONS ---
CONSULTATION Mrs. Giron is an 83-year-old female with history of hypertension, hyperlipidemia, diabetes mellitus, who has been followed by Dr. Dilcia Lopez who had a fall and fractured hip. She underwent surgical intervention by Dr. Drummond yesterday. Today, she was noted to be in atrial fibrillation with rapid ventricular response. The patient had an episode of atrial fibrillation about 15 years ago then went back in sinus mechanism. She is usually active physically, has seen Dr. Lopez in August and according to her she had a myocardial perfusion imaging and echocardiogram. They were unremarkable. She denies any significant dyspnea on exertion. No dizziness. No palpitation. No chest discomfort. No PND, orthopnea, or peripheral edema. She was not aware of the atrial fibrillation today. The patient was not anticoagulated in the past. Her coronary risk factors are remarkable for hypertension, hyperlipidemia, and diabetes mellitus. She is a nonsmoker. MEDICATIONS: Her medications at the time of admission included simvastatin 20 mg daily, metoprolol tartrate 12.5 mg at bedtime, insulin, aspirin once a day, and vitamin C. REVIEW OF SYSTEMS: RESPIRATORY SYSTEM: She has no documented history of asthma, emphysema or bronchitis. GI SYSTEM: No recent GI bleeding. No peptic ulcer disease. SYSTEM: No dysuria or hematuria. NERVOUS SYSTEM: No stroke or seizure. PHYSICAL EXAMINATION: She is an 83-year-old female, alert, oriented, in no apparent distress. Blood pressure 103/70 with the heart rate in the 120s. HEAD: Normocephalic. EYES: Sclerae nonicteric. NECK: Good upstroke. No bruit. No jugular venous distention. LUNGS: Clear to auscultation. HEART: Irregular, irregular. S1, S2. No S3. No rub with a systolic murmur. ABDOMEN: Soft, nontender. Positive bowel sounds. No organomegaly. EXTREMITIES: No edema. Intact distal pulses. LAB DATA: Initial EKG performed on the revealed a sinus mechanism with left ventricular hypertrophy and nonspecific ST-T wave changes. Her repeat EKG performed today revealed an atrial fibrillation with a rapid ventricular response rate of [address]- T wave changes. Her BUN and creatinine 20 and 0.78. Potassium 4.3. Hemoglobin of 9.7. Sodium is 124. IMPRESSION: 1. Atrial fibrillation, new onset, not documented on presentation. The patient had an episode of atrial fibrillation according to her 15 years ago without any recurrence. 2. Status post fall and status post left hip hemiarthroplasty. 3. History of hypotension in the past. 4. Hyperlipidemia. 5. Diabetes mellitus. RECOMMENDATION: I will increase the dose of her beta gwyn to control ventricular response. I will start her on anticoagulation in the form of Eliquis 5 mg twice a day, I will stop her aspirin. I will obtain echocardiogram with Doppler as well as evaluation of her thyroid function test. We will keep a close eye on her sodium. She is not on any diuretic at this time. Depending on her progress, further recommendation will be made. Thank you for this consult. We will follow with you. MMMARKELL / IJN: [id number] /
[2019-01-31] MEDS: MULTIVITAMINS, THERA 1 EACH TAB PO SCH (12:33)
[2019-01-31] MEDS: APIXABAN 5 MG TAB PO SCH ×2 (14:16→21:09)
[2019-01-31] MEDS: METOPROLOL TARTRATE 25 MG TAB PO SCH ×2 (15:55→23:00)
[2019-01-31 16:37] LABS: Glucose,Whole Blood 247 mg/dL (75-99)
[2019-01-31] MEDS: HYDROcodone/APAP 7.5-325MG 1 EACH TAB PO PRN (17:51)
[2019-01-31 19:06] LABS: Iron Saturation 17.69 (12.00-45.00)
[2019-01-31 20:36] LABS: Glucose,Whole Blood 245 mg/dL (75-99)
[2019-01-31] MEDS: SENNOSIDES-DOCUSATE SODIUM 1 EACH TAB PO SCH (20:52)
[2019-01-31] MEDS: ASCORBIC ACID 500 MG TAB PO SCH (20:52)
[2019-01-31] MEDS: CHOLECALCIFEROL 1,000 UNIT TAB PO SCH (20:52)
[2019-01-31] MEDS: ATORVASTATIN 10 MG TAB PO SCH (20:52)
[2019-01-31] MEDS: INSULIN DETEMIR (LEVEMIR) 100 UNIT/ML SYR SQ SCH (20:53)
[2019-02-01] MEDS ORDERED: SODIUM CHLORIDE 0.9% 500 ML 200 ML IV ONE (06:24)
[2019-02-01 06:50] LABS: Glucose,Whole Blood 212 mg/dL (75-99)
[2019-02-01] MEDS: INSULIN ASPART (NovoLOG) 100 UNIT/ML VIAL SQ SCH ×5 (07:40→20:19)
[2019-02-01] MEDS: APIXABAN 5 MG TAB PO SCH ×2 (07:41→20:21)
[2019-02-01] MEDS: HYDROcodone/APAP 7.5-325MG 1 EACH TAB PO PRN ×3 (08:02→22:11)
[2019-02-01] MEDS: METOPROLOL TARTRATE 25 MG TAB PO SCH ×2 (08:02→22:17)
[2019-02-01 08:42] LABS: Basophils % (A) 0 %; Eosinophils # (A) 0.2 k/uL (0-0.7); Eosinophils % (A) 2 %; HCT 24.7 % (34.0-46.0); HGB 8.5 gm/dL (11.4-16.0); Lymphocytes # (A) 0.9 k/uL (1.0-4.8); Lymphocytes % (A) 10 %; MCH 30.1 pg (25.0-35.0); MCHC 34.4 g/dL (31.0-37.0); MCV 87.5 fL (80.0-100.0); Mean Platelet Volume 7.7; Monocytes % (A) 11 %; Neutrophils # (A) 6.7 k/uL (1.3-7.7); Neutrophils % (A) 75 %; Platelet Count 152 k/uL (150-450); RBC 2.82 m/uL (3.80-5.40); RDW 13.6 % (11.5-15.5); WBC 8.9 k/uL (3.8-10.6)
[2019-02-01 08:55] LABS: ALT 11 U/L (9-52); AST 19 U/L (14-36); African American GFR (CKD) >90 (>60 ml/min/1.73 sqM); Albumin 2.5 g/dL (3.5-5.0); Alkaline Phosphatase 57 U/L (38-126); Anion Gap 6 mmol/L; Blood Urea Nitrogen 17 mg/dL (7-17); Calcium 7.8 mg/dL (8.4-10.2); Carbon Dioxide 22 mmol/L (22-30); Chloride 96 mmol/L (98-107); Glucose 271 mg/dL (74-99); Magnesium 1.7 mg/dL (1.6-2.3); Potassium 4.9 mmol/L (3.5-5.1); Sodium 124 mmol/L (137-145); Total Bilirubin 0.6 mg/dL (0.2-1.3); Total Protein 4.7 g/dL (6.3-8.2)
--- NOTE | 2019-02-01 09:49 | P.PN ---
Subjective Progress Note Date: 02/01/19 Principal diagnosis: S/P left hip hemiarthroplasty for left hip fracture Patient is seen at bedside this morning. She is postop day #2 from left hip hemiarthroplasty. She has pain at the surgical site as expected but denies any new complaints. She had afib yesterday and is being managed by cardiology. She is currently stable. She denies numbness, tingling or calf pain. Review of systems is negative for fever, chills, chest pain, shortness of breath or other Objective - Vital Signs Vital signs: Vital Signs Temp 98.5 F 02/01/19 07:42 Pulse 71 02/01/19 07:42 Resp 14 02/01/19 07:42 BP 98/63 02/01/19 07:42 Pulse Ox 97 02/01/19 07:42 Intake & Output 01/31/19 02/01/19 02/01/19 18:59 06:59 18:59 Intake Total 1140 296 Output Total 75 1100 Balance 1065 -1100 296 Intake: IV 900 Sodium Chloride 0.9% 500 500 ml 500 ml @ 999 mls/hr IV .Q31M [facility] Rx#:[id number] cefTRIAXone 1 gm In 400 Sodium Chloride 0.9% 50 ml @ 100 mls/hr IVPB Q24HR [facility] Rx#:[id number] Oral 240 296 Output: Urine 75 1100 Other: Voiding Method Indwelling Catheter Indwelling Catheter - Exam Inspection reveals a benign surgical wound. There is no active bleeding or drainage. Neurovascular status is intact throughout the lower extremity with motor and sensation fully intact. Calf is soft and nontender. 2+ dorsalis pedis pulse and less than 2 second cap refill is present. - Constitutional General appearance: Present: no acute distress - Labs CBC & Chem 7: 02/01/19 07:56 02/01/19 07:56 Labs: Abnormal Lab Results - Last 24 Hours (Table) 01/30/19 01/31/19 01/31/19 Range/Units 07:36 11:22 16:35 RBC (3.80-5.40) m/uL Hgb (11.4-16.0) gm/dL Hct (34.0-46.0) % Lymphocytes # (1.0-4.8) k/uL Sodium (137-145) mmol/L Chloride (98-107) mmol/L Glucose (74-99) mg/dL POC Glucose (mg/dL) 278 H 247 H (75-99) mg/dL Calcium (8.4-10.2) mg/dL Iron 46 L (50-170) ug/dL Total Protein (6.3-8.2) g/dL Albumin (3.5-5.0) g/dL 01/31/19 02/01/19 02/01/19 Range/Units 20:25 06:49 07:56 RBC 2.82 L (3.80-5.40) m/uL Hgb 8.5 L (11.4-16.0) gm/dL Hct 24.7 L (34.0-46.0) % Lymphocytes # 0.9 L (1.0-4.8) k/uL Sodium (137-145) mmol/L Chloride (98-107) mmol/L Glucose (74-99) mg/dL POC Glucose (mg/dL) 245 H 212 H (75-99) mg/dL Calcium (8.4-10.2) mg/dL Iron (50-170) ug/dL Total Protein (6.3-8.2) g/dL Albumin (3.5-5.0) g/dL 02/01/19 Range/Units 07:56 RBC (3.80-5.40) m/uL Hgb (11.4-16.0) gm/dL Hct (34.0-46.0) % Lymphocytes # (1.0-4.8) k/uL Sodium 124 L (137-145) mmol/L Chloride 96 L (98-107) mmol/L Glucose 271 H (74-99) mg/dL POC Glucose (mg/dL) (75-99) mg/dL Calcium 7.8 L (8.4-10.2) mg/dL Iron (50-170) ug/dL Total Protein 4.7 L (6.3-8.2) g/dL Albumin 2.5 L (3.5-5.0) g/dL Microbiology - Last 24 Hours (Table) 01/31/19 10:00 Urine Culture - Preliminary Urine,Catheterized Assessment and Plan (1) Hip fracture Narrative/Plan: She will continue with routine postop orthopedic protocol including pain management, wound care, PT, DVT prophylaxis and medical management. Expect that she will transfer to ECF today or tomorrow if ok with IM and cardiology. Current Visit: Yes Status: Acute Code(s): S72.009A - FRACTURE OF UNSP PART OF NECK OF UNSP FEMUR, INIT SNOMED Code(s): 485061261 Time with Patient: Less than 30
--- NOTE | 2019-02-01 11:18 | P.PN ---
Subjective Progress Note Date: 02/01/19 This is an 83-year-old female patient of Dr. Samuel. Patient presented to ER after sustaining a fall. Patient reports she was playing bridge when she tripped over some increased pain and landed on her left hip. Patient denies hitting her head or loss of consciousness. Patient denies any dizziness prior to episode. Hip x-ray completed showing acute subcapital fracture through left proximal humerus. Patient reports that she had episode of A. fib approximately 15 years ago. Patient reports that she was not placed on anticoagulation and never had an occurrence again. Additional history includes diabetes mellitus in which he follows with endocrinology, hyperlipidemia and hypertension. Patient denies any history of cardiac conditions. Patient denies history of CHF,COPD or asthma. Patient denies smoking. At this time patient denies any chest pain or shortness of breath. Patient denies nausea vomiting or diarrhea. Patient denies any urinary burning or frequency. Patient low grade temp of 99.9 throughout night this is likely reactive. Chest x-ray completed showing chronic parenchymal changes and cardiomegaly without acute pulmonary process. EKG completed showing some normal sinus rhythm voltage criteria for left ventricular hypertrophy. Urinary analysis has been ordered. orthopedic services have been consulted planning left hip gypsy arthroplasty today. On 01/31/2019 patient is alert and oriented 3. Patient reports she feels well after surgery. Upon auscultation patient was found to have elevated heart rate possibly irregular. EKG has been ordered orders for telemetry placed. EKG that was completed yesterday showed normal sinus rhythm. Patient denies any feeling of palpitations or heart racing. Patient denies shortness of breath. Patient's sodium also at 124 continue normal saline at 75. At this time patient denies nausea vomiting or diarrhea. Patient denies chest pain or shortness of breath. Patient denies any urinary burning or frequency. On 02/01/2019 patient alert and oriented 3. Patient was found to be in A. fib with RVR yesterday. Cardiology consulted patient started on eliquis. Patient's sodium remains low despite fluid at 124. Patient denies excessive water intake. Will consult nephrology services at this time. Patient denies any chest pain or shortness of breath. Patient denies nausea vomiting or diarrhea. Patient denies any urinary burning or frequency Objective - Vital Signs Vital signs: Vital Signs Temp 98.5 F 02/01/19 07:42 Pulse 71 02/01/19 07:42 Resp 14 02/01/19 07:42 BP 98/63 02/01/19 07:42 Pulse Ox 97 02/01/19 07:42 Intake & Output 01/31/19 02/01/19 02/01/19 18:59 06:59 18:59 Intake Total 1140 296 Output Total 75 1100 Balance 1065 -1100 296 Intake: IV 900 Sodium Chloride 0.9% 500 500 ml 500 ml @ 999 mls/hr IV .Q31M [facility] Rx#:[id number] cefTRIAXone 1 gm In 400 Sodium Chloride 0.9% 50 ml @ 100 mls/hr IVPB Q24HR [facility] Rx#:[id number] Oral 240 296 Output: Urine 75 1100 Other: Voiding Method Indwelling Catheter Indwelling Catheter - Exam Head normocephalic Neck supple Lungs clear to auscultation bilaterally no wheezing or crackles Heart Irregular elevated HR Abdomen is soft nontender nondistended positive bowel sounds no hepatosplenomegaly Extremities no edema. Left hip dressing clean dry and intact Neuro alert and orientated to 3 - Labs CBC & Chem 7: 02/01/19 07:56 02/01/19 07:56 Labs: Abnormal Lab Results - Last 24 Hours (Table) 01/30/19 01/31/19 01/31/19 Range/Units 07:36 11:22 16:35 RBC (3.80-5.40) m/uL Hgb (11.4-16.0) gm/dL Hct (34.0-46.0) % Lymphocytes # (1.0-4.8) k/uL Sodium (137-145) mmol/L Chloride (98-107) mmol/L Glucose (74-99) mg/dL POC Glucose (mg/dL) 278 H 247 H (75-99) mg/dL Calcium (8.4-10.2) mg/dL Iron 46 L (50-170) ug/dL Total Protein (6.3-8.2) g/dL Albumin (3.5-5.0) g/dL 01/31/19 02/01/19 02/01/19 Range/Units 20:25 06:49 07:56 RBC 2.82 L (3.80-5.40) m/uL Hgb 8.5 L (11.4-16.0) gm/dL Hct 24.7 L (34.0-46.0) % Lymphocytes # 0.9 L (1.0-4.8) k/uL Sodium (137-145) mmol/L Chloride (98-107) mmol/L Glucose (74-99) mg/dL POC Glucose (mg/dL) 245 H 212 H (75-99) mg/dL Calcium (8.4-10.2) mg/dL Iron (50-170) ug/dL Total Protein (6.3-8.2) g/dL Albumin (3.5-5.0) g/dL 02/01/19 Range/Units 07:56 RBC (3.80-5.40) m/uL Hgb (11.4-16.0) gm/dL Hct (34.0-46.0) % Lymphocytes # (1.0-4.8) k/uL Sodium 124 L (137-145) mmol/L Chloride 96 L (98-107) mmol/L Glucose 271 H (74-99) mg/dL POC Glucose (mg/dL) (75-99) mg/dL Calcium 7.8 L (8.4-10.2) mg/dL Iron (50-170) ug/dL Total Protein 4.7 L (6.3-8.2) g/dL Albumin 2.5 L (3.5-5.0) g/dL Microbiology - Last 24 Hours (Table) 01/31/19 10:00 Urine Culture - Preliminary Urine,Catheterized Assessment and Plan Assessment: 1. Left hip fracture status post fall. Status post left hip hemiarthroplasty. currently postop day 2 2. New-onset A. fib with RVR. Patient does reports she had incident of A. fib proximally 15 years ago at that time patient was not started on medication anticoagulation. Per nursing staff EKG showing A. fib with RVR heart rate in the 120s. Patient is asymptomatic. Patient started on eliquis per cardiology. TSH within normal limits at 2.570. Magnesium 1.7. 2-D echo has been ordered per cardiology 3. History of diabetes mellitus type 2. Home long-acting medication has been or dered along with sliding scale coverage. Patient reports she does follow with endocrinology. Last hemoglobin A1c 2 weeks ago 8.0 4. History of atrial fibrillation possibly 15 years ago. Patient reports this was an isolated incident did not require anticoagulation no further episodes. EKG completed in ER showing normal sinus rhythm. Voltage criteria for left ventricular hypertrophy 5. History of hyperlipidemia 6. History of essential hypertension 7. Urinary tract infection. UA showing small amount of leukocyte Estrace. Patients are Rocephin. Urine culture ordered 8. Hyponatremia. Sodium low at 124. Continue normal saline at 75. Nephrology services have been consulted 9. Anemia. Iron studies ordered. Stool for occult blood ordered. Hemoglobin 8.5 Thank you for this consultation we will continue to follow patient closely throughout stay I performed an examination of the patient and discussed their management with the Nurse Practitioner. I have reviewed the Nurse Practitioner's notes and agree with the documented findings and plan of care
[2019-02-01 11:45] LABS: Glucose,Whole Blood 228 mg/dL (75-99)
[2019-02-01] MEDS: MULTIVITAMINS, THERA 1 EACH TAB PO SCH (12:21)
[2019-02-01] MEDS: SODIUM CHLORIDE 0.9% 1,000 ML IV SCH ×2 (12:23→22:17)
[2019-02-01] MEDS ORDERED: FUROSEMIDE 10 MG/ML 2 ML VIAL IV STA (13:10)
--- NOTE | 2019-02-01 14:32 | PN ---
PROGRESS NOTE Mrs. Giron is an 83-year-old female who underwent surgery for a fractured hip and had an episode of atrial fibrillation. She is back in sinus mechanism at this time. She is feeling well. She is denying any chest pain. Her breathing is stable. Her energy is better. She denies any dizziness or palpitation. She continues to be at this time on Eliquis 5 mg twice a day, Lipitor 10 mg daily, metoprolol tartrate 25 mg 3 times a day. PHYSICAL EXAMINATION: Blood pressure 104/60 with a heart rate in the 70s. LUNGS: Clear. HEART: Regular rate and rhythm, S1, S2. No S3. No rub. ABDOMEN: Soft, nontender. EXTREMITIES: +1 edema on the left side. IMPRESSION: 1. Status post hip fracture and surgery. 2. Paroxysmal atrial fibrillation, back in sinus mechanism, anticoagulated. 3. History of diabetes. 4. Hyperlipidemia. RECOMMENDATION: I will decrease the dose of her beta gwyn to 25 mg twice a day. Continue the anticoagulation. Increase her level of activity. From the cardiac standpoint, she is stable. She will follow up as an outpatient with Dr. Lopez and will see her on as- needed basis. Please feel free to call us for any question. MMODL / IJN: [id number] /
--- NOTE | 2019-02-01 15:05 | CONS ---
CONSULTATION REASON FOR CONSULT: Hyponatremia. HISTORY OF PRESENT ILLNESS: Patient is an 83-year-old female who was admitted to the hospital after a fall when she tripped and sustained acute subcapital fracture of the left proximal humerus. Patient is status post surgery on 01/30/2019. She had a left hip arthroplasty. It did appear that her sodium dropped from 132 on initial admission to 124 yesterday. Patient has been maintained on normal saline. It looks like she did get fluid boluses yesterday close to about 1 L of saline. Sodium was 129 the day before and came down to 124. Patient denies any prior history of hyponatremia. She has been having pain. She has a Allen catheter and has had good urine output. Patient did admit to the fact that she has not been eating well. PAST MEDICAL HISTORY: Hypertension, osteoarthritis, AFib, type 2 diabetes, hyperlipidemia. PAST SURGICAL HISTORY: Bladder suspension, cardiac catheterization. SOCIAL HISTORY: Negative for smoking, drug abuse or alcohol abuse. MEDICATIONS: Prior to admission include vitamin C, aspirin, vitamin D3, insulin, Lopressor, Zocor. ALLERGIES: None. REVIEW OF SYSTEMS: As per HPI. Other systems negative. On examination, patient is comfortable, awake, alert, oriented x3, not in any acute distress. Blood pressure is 98/63, heart rate 66 per minute. She is afebrile. Examination of the, heart S1, S2. Examination of the lungs, bilateral breath sounds are heard. Abdomen is soft, nontender. Examination of lower extremities shows edema 1+ bilaterally, more in the left leg than on the right leg. ART TEACHER exam is grossly intact. Patient moving all 4 extremities. LABS: Show sodium 124 today, potassium 4.9, BUN 17, serum creatinine 0.6, hemoglobin 8.5 g/dL. ASSESSMENT: 1. 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 She also appears to be hypervolemic. Therefore, I will discontinue the saline and we will check a urine osmolality, TSH level. Patient's blood pressure has been lower recently. She is not on any antihypertensive medications. Also, although she is getting pain medications. Serum cortisol level will be sent and if her blood pressure drops again, we can use midodrine. In the meantime, a repeat sodium level will be ordered in about 3-4 hours. 2. Status post fall and fractured left hip, status post left hip hemiarthroplasty. 3. History of hypertension. Blood pressure currently low. 4. Anemia, postoperatively. No active bleeding noted. Check iron studies. PLAN: Discontinue normal saline. Check urine osmolality. Check random cortisol level. Check TSH. The Lasix 20 mg IV push x1. A repeat sodium in about 4 hours and. If blood pressure remains low, we can use midodrine unless there is evidence of adrenal insufficiency. The then patient will need steroids as well. Thank you for this consultation. Will continue to follow the patient with you during her hospitalization. MMODL / IJN: [id number] /
[2019-02-01 16:53] LABS: Iron Saturation 4.61 (12.00-45.00)
[2019-02-01 17:17] LABS: Glucose,Whole Blood 283 mg/dL (75-99)
[2019-02-01] MEDS ORDERED: MIDODRINE 5 MG TAB PO ONE (17:42)
--- NOTE | 2019-02-01 18:13 | ECHOF ---
Referral Reason:afib MEASUREMENTS -------- HEIGHT: 170.2 cm WEIGHT: 72.6 kg BP: 103/76 RVIDd: 2.5 cm (< 3.3) IVSd: 1.4 cm (0.6 - 1.1) LVIDd: 3.7 cm (3.9 - 5.3) LVPWd: 1.3 cm (0.6 - 1.1) IVSs: 2.0 cm LVIDs: 2.2 cm LVPWs: 1.5 cm LAESV Index (A-L): 24.92 ml/m Ao Diam: 3.0 cm (2.0 - 3.7) AV Cusp: 2.3 cm (1.5 - 2.6) LA Diam: 3.0 cm (2.7 - 3.8) RAP: 5.00 mmHg RVSP: 55.26 mmHg FINDINGS -------- Atrial fibrillation. This was a technically adequate study. The left ventricular size is normal. There is mild concentric left ventricular hypertrophy. Overa ll left ventricular systolic function is normal with, an EF between 55 - 60 %. The right ventricle is normal in size. Normal LA size by volume 22+/-6 ml/m2. The right atrial size is normal. Interatrial and interventricular septum intact. Aortic valve is trileaflet and is mildly thickened. The mitral valve is normal. Mild mitral regurgitation is present. Moderate tricuspid regurgitation present. There is moderate pulmonary hypertension. The right francis tricular systolic pressure, as measured by Doppler, is 55.26mmHg. Moderate pulmonic regurgitation. The aortic root size is normal. Normal inferior vena cava with normal inspiratory collapse consistent with estimated right atrial pre ssure of 5 mmHg. There is no pericardial effusion. CONCLUSIONS -------- 1. Atrial fibrillation. 2. This was a technically adequate study. 3. The left ventricular size is normal. 4. There is mild concentric left ventricular hypertrophy. 5. Overall left ventricular systolic function is normal with, an EF between 55 - 60 %. 6. Normal LA size by volume 22+/-6 ml/m2. 7. Aortic valve is trileaflet and is mildly thickened. 8. The mitral valve is normal. 9. Mild mitral regurgitation is present. 10. Moderate tricuspid regurgitation present. 11. There is moderate pulmonary hypertension. 12. Moderate pulmonic regurgitation. 13. The aortic root size is normal. 14. Normal inferior vena cava with normal inspiratory collapse consistent with estimated right atrial pressure of 5 mmHg. 15. There is no pericardial effusion. PHARMACY GENERAL MANAGER: Lynn Chua RDCS
[2019-02-01 20:12] LABS: Glucose,Whole Blood 333 mg/dL (75-99)
[2019-02-01] MEDS: INSULIN DETEMIR (LEVEMIR) 100 UNIT/ML SYR SQ SCH (20:20)
[2019-02-01] MEDS: CHOLECALCIFEROL 1,000 UNIT TAB PO SCH (20:20)
[2019-02-01] MEDS: ATORVASTATIN 10 MG TAB PO SCH (20:22)
[2019-02-01] MEDS: SENNOSIDES-DOCUSATE SODIUM 1 EACH TAB PO SCH (20:22)
[2019-02-01] MEDS: ASCORBIC ACID 500 MG TAB PO SCH (22:11)
[2019-02-02 07:25] LABS: Glucose,Whole Blood 181 mg/dL (75-99)
[2019-02-02 08:19] LABS: Basophils % (A) 0 %; Eosinophils # (A) 0.2 k/uL (0-0.7); Eosinophils % (A) 2 %; HCT 22.2 % (34.0-46.0); HGB 7.5 gm/dL (11.4-16.0); Lymphocytes # (A) 1.3 k/uL (1.0-4.8); Lymphocytes % (A) 12 %; MCH 29.7 pg (25.0-35.0); MCHC 33.5 g/dL (31.0-37.0); MCV 88.4 fL (80.0-100.0); Mean Platelet Volume 8.3; Monocytes # (A) 0.9 k/uL (0-1.0); Monocytes % (A) 8 %; Neutrophils # (A) 8.7 k/uL (1.3-7.7); Neutrophils % (A) 76 %; Platelet Count 206 k/uL (150-450); RBC 2.52 m/uL (3.80-5.40); RDW 14.5 % (11.5-15.5); WBC 11.5 k/uL (3.8-10.6)
[2019-02-02] MEDS: INSULIN ASPART (NovoLOG) 100 UNIT/ML VIAL SQ SCH ×7 (08:20→21:03)
[2019-02-02] MEDS: HYDROcodone/APAP 7.5-325MG 1 EACH TAB PO PRN ×2 (08:21→18:38)
[2019-02-02] MEDS: APIXABAN 5 MG TAB PO SCH ×2 (08:22→20:39)
[2019-02-02] MEDS: MIDODRINE 5 MG TAB PO SCH ×2 (08:22→18:40)
[2019-02-02] MEDS: METOPROLOL TARTRATE 25 MG TAB PO SCH ×2 (08:23→20:40)
[2019-02-02] MEDS: SODIUM CHLORIDE 0.9% 1,000 ML IV SCH (08:24)
[2019-02-02 08:29] LABS: Albumin 2.5 g/dL (3.5-5.0); Calcium 8.2 mg/dL (8.4-10.2); Potassium 4.8 mmol/L (3.5-5.1); Total Bilirubin 0.6 mg/dL (0.2-1.3); Total Protein 4.9 g/dL (6.3-8.2)
--- NOTE | 2019-02-02 08:46 | P.PN ---
Subjective Progress Note Date: 02/02/19 Principal diagnosis: Status post left hip hemiarthroplasty This is an 83 year-old female post left hip hemiarthroplasty. This is post-op day 3. The patient was evaluated at the bedside today. The patient denies nausea, vomiting, abdominal pain, shortness of breath, and chest pain this morning. She states her pain is controlled at this time. The patient has been up with physical therapy but is only transferring to a chair. She has been closely followed by internal medicine for hyponatremia and nephrology has been consulted. Sodium level this morning is 127. She also had an episode of A. fib that cardiology has been following and is now in a sinus rhythm. We are awaiting final clearance from internal medicine for transfer to rehab. Objective - Vital Signs Vital signs: Vital Signs Temp 98.5 F 02/02/19 08:11 Pulse 99 02/02/19 08:11 Resp 16 02/02/19 08:11 BP 96/63 02/02/19 08:11 Pulse Ox 98 02/02/19 08:11 Intake & Output 02/01/19 02/02/19 02/02/19 18:59 06:59 18:59 Intake Total 952 318 Output Total 400 1175 Balance 552 -1175 318 Intake: Oral 952 318 Output: Urine 400 1175 Other: Voiding Method Indwelling Catheter Indwelling Catheter - Exam The patient does not appear in acute distress. Alert and orientated x3. Dressing is intact. There is a small amount of sanguinous drainage on the dressing this morning. Incision appears fine with no erythema or active drainage. Ecchymosis is present to the incision site. Calf is soft and nontender. Good foot and ankle motion without difficulty. Sensation and circulatory status is intact. - Labs CBC & Chem 7: 02/02/19 07:23 02/02/19 07:23 Labs: Abnormal Lab Results - Last 24 Hours (Table) 02/01/19 02/01/19 02/01/19 Range/Units 07:56 07:56 08:44 WBC (3.8-10.6) k/uL RBC 2.82 L (3.80-5.40) m/uL Hgb 8.5 L (11.4-16.0) gm/dL Hct 24.7 L (34.0-46.0) % Neutrophils # (1.3-7.7) k/uL Lymphocytes # 0.9 L (1.0-4.8) k/uL Sodium 124 L (137-145) mmol/L Chloride 96 L (98-107) mmol/L BUN (7-17) mg/dL Glucose 271 H (74-99) mg/dL POC Glucose (mg/dL) (75-99) mg/dL Calcium 7.8 L (8.4-10.2) mg/dL Iron 10 L (50-170) ug/dL TIBC 217 L (228-460) ug/dL Iron Saturation 4.61 L (12.00-45.00) Total Protein 4.7 L (6.3-8.2) g/dL Albumin 2.5 L (3.5-5.0) g/dL TSH (0.465-4.680) mIU/L 02/01/19 02/01/19 02/01/19 Range/Units 11:44 13:44 13:51 WBC (3.8-10.6) k/uL RBC (3.80-5.40) m/uL Hgb (11.4-16.0) gm/dL Hct (34.0-46.0) % Neutrophils # (1.3-7.7) k/uL Lymphocytes # (1.0-4.8) k/uL Sodium 124 L (137-145) mmol/L Chloride (98-107) mmol/L BUN (7-17) mg/dL Glucose (74-99) mg/dL POC Glucose (mg/dL) 228 H (75-99) mg/dL Calcium (8.4-10.2) mg/dL Iron (50-170) ug/dL TIBC (228-460) ug/dL Iron Saturation (12.00-45.00) Total Protein (6.3-8.2) g/dL Albumin (3.5-5.0) g/dL TSH 5.810 H (0.465-4.680) mIU/L 02/01/19 02/01/19 02/02/19 Range/Units 17:05 20:01 07:07 WBC (3.8-10.6) k/uL RBC (3.80-5.40) m/uL Hgb (11.4-16.0) gm/dL Hct (34.0-46.0) % Neutrophils # (1.3-7.7) k/uL Lymphocytes # (1.0-4.8) k/uL Sodium (137-145) mmol/L Chloride (98-107) mmol/L BUN (7-17) mg/dL Glucose (74-99) mg/dL POC Glucose (mg/dL) 283 H 333 H 181 H (75-99) mg/dL Calcium (8.4-10.2) mg/dL Iron (50-170) ug/dL TIBC (228-460) ug/dL Iron Saturation (12.00-45.00) Total Protein (6.3-8.2) g/dL Albumin (3.5-5.0) g/dL TSH (0.465-4.680) mIU/L 02/02/19 02/02/19 Range/Units 07:23 07:23 WBC 11.5 H (3.8-10.6) k/uL RBC 2.52 L (3.80-5.40) m/uL Hgb 7.5 L (11.4-16.0) gm/dL Hct 22.2 L (34.0-46.0) % Neutrophils # 8.7 H (1.3-7.7) k/uL Lymphocytes # (1.0-4.8) k/uL Sodium 127 L (137-145) mmol/L Chloride 95 L (98-107) mmol/L BUN 22 H (7-17) mg/dL Glucose 168 H (74-99) mg/dL POC Glucose (mg/dL) (75-99) mg/dL Calcium 8.2 L (8.4-10.2) mg/dL Iron (50-170) ug/dL TIBC (228-460) ug/dL Iron Saturation (12.00-45.00) Total Protein 4.9 L (6.3-8.2) g/dL Albumin 2.5 L (3.5-5.0) g/dL TSH (0.465-4.680) mIU/L Microbiology - Last 24 Hours (Table) 01/31/19 10:00 Urine Culture - Final Urine,Catheterized Assessment and Plan (1) Fall Current Visit: Yes Status: Acute Code(s): W19.XXXA - UNSPECIFIED FALL, INITIAL ENCOUNTER SNOMED Code(s): 0683798 (2) History of hemiarthroplasty of left hip Current Visit: Yes Status: Acute Code(s): Z96.642 - PRESENCE OF LEFT ARTIFICIAL HIP JOINT SNOMED Code(s): 860890066 (3) Hip fracture Current Visit: Yes Status: Acute Code(s): S72.009A - FRACTURE OF UNSP PART OF NECK OF UNSP FEMUR, INIT SNOMED Code(s): 970937349 (4) Atrial fibrillation Current Visit: Yes Status: Acute Code(s): I48.91 - UNSPECIFIED ATRIAL FIBRILLATION SNOMED Code(s): 93155474 (5) Diabetes mellitus Current Visit: Yes Status: Acute Code(s): E11.9 - TYPE 2 DIABETES MELLITUS WITHOUT COMPLICATIONS SNOMED Code(s): 27764549 (6) Hyperlipidemia Current Visit: Yes Status: Acute Code(s): E78.5 - HYPERLIPIDEMIA, UNSPECIFIED SNOMED Code(s): 48965621 (7) Hypertension Current Visit: Yes Status: Acute Code(s): I10 - ESSENTIAL (PRIMARY) HYPERTENSION SNOMED Code(s): 46329150 Plan: 1. Continue pain control 2. Anticoagulation with Eliquis 3. Continue physical therapy and ambulation 4. Anticipate discharge to [facility] when cleared by internal medicine, nephrology, and cardiology. This will likely take place on Monday.
--- NOTE | 2019-02-02 09:33 | P.PN ---
Subjective Progress Note Date: 02/02/19 Principal diagnosis: This is a 83-year-old female seen in consultation because of hyponatremia deemed to be from SIADH.She came in after a fall and subcapital fracture of the left proximal humerus and underwent surgery on 01/30/2019. Workup has shown urine osmolality is 608 urine sodium of 12. Uric acid not available. Serum cortisol level is high at 24 and serum TSH is slightly high at 5.8. Although the urine osmolalities and sodium is consistent volume overload but the normal saline to induce hyponatremia suggests more likely this is SIADH. Her echocardiogram shows 55-60% ejection fraction. She is known with chronic hypotension and is on midodrine at home.Her past history significant for atrial fibrillation diabetes. Her sodium was 132 on admission went down to 124. With normal saline it did drop. She was started on 1 dose of Lasix because of concern about volume overload. She is somewhat hypotensive and is on midodrine as well. This morning her sitting in a chair, her appetite is poor but she did eat and she is on fluid restriction. She does feel somewhat nauseated no headache no dizziness in spite of the low blood pressure. No vomiting diarrhea. No shortness of breath or cough. Her intake is 952 output is 15 75 mL she has a Allen cath Objective - Vital Signs Vital signs: Vital Signs Temp 98.5 F 02/02/19 08:11 Pulse 99 02/02/19 08:11 Resp 16 02/02/19 08:11 BP 96/63 02/02/19 08:11 Pulse Ox 98 02/02/19 08:11 Intake & Output 02/01/19 02/02/19 02/02/19 18:59 06:59 18:59 Intake Total 952 318 Output Total 400 1175 Balance 552 -1175 318 Intake: Oral 952 318 Output: Urine 400 1175 Other: Voiding Method Indwelling Catheter Indwelling Catheter Examination she is awake alert oriented HEENT exam no JVP no hepatojugular reflux. Lungs are clear to auscultation good air entry bilaterally Heart sounds are significant for atrial fibrillation no murmur rub gallop Abdomen soft nontender Extremity exam was no edema Neurologically awake alert oriented but fatigued and tired with somewhat pale - Labs CBC & Chem 7: 02/02/19 07:23 02/02/19 07:23 Labs: Abnormal Lab Results - Last 24 Hours (Table) 02/01/19 02/01/19 02/01/19 Range/Units 08:44 11:44 13:44 WBC (3.8-10.6) k/uL RBC (3.80-5.40) m/uL Hgb (11.4-16.0) gm/dL Hct (34.0-46.0) % Neutrophils # (1.3-7.7) k/uL Sodium 124 L (137-145) mmol/L Chloride (98-107) mmol/L BUN (7-17) mg/dL Glucose (74-99) mg/dL POC Glucose (mg/dL) 228 H (75-99) mg/dL Calcium (8.4-10.2) mg/dL Iron 10 L (50-170) ug/dL TIBC 217 L (228-460) ug/dL Iron Saturation 4.61 L (12.00-45.00) Total Protein (6.3-8.2) g/dL Albumin (3.5-5.0) g/dL TSH (0.465-4.680) mIU/L 02/01/19 02/01/19 02/01/19 Range/Units 13:51 17:05 20:01 WBC (3.8-10.6) k/uL RBC (3.80-5.40) m/uL Hgb (11.4-16.0) gm/dL Hct (34.0-46.0) % Neutrophils # (1.3-7.7) k/uL Sodium (137-145) mmol/L Chloride (98-107) mmol/L BUN (7-17) mg/dL Glucose (74-99) mg/dL POC Glucose (mg/dL) 283 H 333 H (75-99) mg/dL Calcium (8.4-10.2) mg/dL Iron (50-170) ug/dL TIBC (228-460) ug/dL Iron Saturation (12.00-45.00) Total Protein (6.3-8.2) g/dL Albumin (3.5-5.0) g/dL TSH 5.810 H (0.465-4.680) mIU/L 06/15/19 06/15/19 06/15/19 Range/Units 07:07 07:23 07:23 WBC 11.5 H (3.8-10.6) k/uL RBC 2.52 L (3.80-5.40) m/uL Hgb 7.5 L (11.4-16.0) gm/dL Hct 22.2 L (34.0-46.0) % Neutrophils # 8.7 H (1.3-7.7) k/uL Sodium 127 L (137-145) mmol/L Chloride 95 L (98-107) mmol/L BUN 22 H (7-17) mg/dL Glucose 168 H (74-99) mg/dL POC Glucose (mg/dL) 181 H (75-99) mg/dL Calcium 8.2 L (8.4-10.2) mg/dL Iron (50-170) ug/dL TIBC (228-460) ug/dL Iron Saturation (12.00-45.00) Total Protein 4.9 L (6.3-8.2) g/dL Albumin 2.5 L (3.5-5.0) g/dL TSH (0.465-4.680) mIU/L Microbiology - Last 24 Hours (Table) 01/31/19 10:00 Urine Culture - Final Urine,Catheterized Assessment and Plan Plan: Impression 1. 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 Workup TSH is 5.8 slightly high, cortisol 24. Urine osmolality 608 and urine sodium 12. Uric acid not available. Sodium improved to 127 on fluid restriction. 2. Admitted with fall and fracture of left femur status post surgery 01/30/2019. 3. History of atrial fibrillation. 4. Chronic hypotension on midodrine. 5. Significant anemia hemoglobin went down from 13.2 at admission to 7.5. Recommendation. 1. Maintain fluid restriction. 2. Maintain meropenem. 3. Repeat sodium later tonight and call me results. 4. Repeat labs tomorrow. 5. Check uric acid. 6. Increased protein intake 7. Orthostatoc BP and HR .
[2019-02-02 11:51] LABS: Glucose,Whole Blood 302 mg/dL (75-99)
[2019-02-02] MEDS: MULTIVITAMINS, THERA 1 EACH TAB PO SCH (12:31)
--- NOTE | 2019-02-02 15:06 | P.PN ---
Subjective Progress Note Date: 02/02/19 This is an 83-year-old female patient of Dr. Samuel. Patient presented to ER after sustaining a fall. Patient reports she was playing bridge when she tripped over some increased pain and landed on her left hip. Patient denies hitting her head or loss of consciousness. Patient denies any dizziness prior to episode. Hip x-ray completed showing acute subcapital fracture through left proximal humerus. Patient reports that she had episode of A. fib approximately 15 years ago. Patient reports that she was not placed on anticoagulation and never had an occurrence again. Additional history includes diabetes mellitus in which he follows with endocrinology, hyperlipidemia and hypertension. Patient denies any history of cardiac conditions. Patient denies history of CHF,COPD or asthma. Patient denies smoking. At this time patient denies any chest pain or shortness of breath. Patient denies nausea vomiting or diarrhea. Patient denies any urinary burning or frequency. Patient low grade temp of 99.9 throughout night this is likely reactive. Chest x-ray completed showing chronic parenchymal changes and cardiomegaly without acute pulmonary process. EKG completed showing some normal sinus rhythm voltage criteria for left ventricular hypertrophy. Urinary analysis has been ordered. orthopedic services have been consulted planning left hip gypsy arthroplasty today. On 01/31/2019 patient is alert and oriented 3. Patient reports she feels well after surgery. Upon auscultation patient was found to have elevated heart rate possibly irregular. EKG has been ordered orders for telemetry placed. EKG that was completed yesterday showed normal sinus rhythm. Patient denies any feeling of palpitations or heart racing. Patient denies shortness of breath. Patient's sodium also at 124 continue normal saline at 75. At this time patient denies nausea vomiting or diarrhea. Patient denies chest pain or shortness of breath. Patient denies any urinary burning or frequency. On 02/01/2019 patient alert and oriented 3. Patient was found to be in A. fib with RVR yesterday. Cardiology consulted patient started on eliquis. Patient's sodium remains low despite fluid at 124. Patient denies excessive water intake. Will consult nephrology services at this time. Patient denies any chest pain or shortness of breath. Patient denies nausea vomiting or diarrhea. Patient denies any urinary burning or frequency. On 02/02/2019 patient was seen and examined on the medical floor she is alert and oriented 3 in no apparent distress she was able to stand and walk a few steps with physical therapy there is no fever or chills no headache or dizziness no chest pain no shortness of breath no cough no nausea or vomiting no abdominal pain no diarrhea and no urinary symptoms patient was seen by nephrology she is maintained on fluid restriction she has hyponatremia due to SIADH sodium today is up to 127 Objective - Vital Signs Vital signs: Vital Signs Temp 98.5 F 02/02/19 08:11 Pulse 73 02/02/19 12:32 Resp 14 02/02/19 12:32 BP 102/68 02/02/19 12:32 Pulse Ox 95 02/02/19 12:32 Intake & Output 02/01/19 02/02/19 02/02/19 18:59 06:59 18:59 Intake Total 952 318 Output Total 400 1175 Balance 552 -1175 318 Intake: Oral 952 318 Output: Urine 400 1175 Other: Voiding Method Indwelling Catheter Indwelling Catheter Indwelling Catheter - Exam In general patient is alert and oriented 3 in no apparent distress Head normocephalic and atraumatic Neck supple no JVD no goiter Lungs clear to auscultation bilaterally no wheezing or crackles Heart Irregular no gallops no murmurs Abdomen is soft nontender nondistended positive bowel sounds no hepatosplenomegaly Extremities no edema. Left hip dressing clean dry and intact Neuro no gross focal neurological deficit - Labs CBC & Chem 7: 02/02/19 07:23 02/02/19 07:23 Labs: Abnormal Lab Results - Last 24 Hours (Table) 02/01/19 02/01/19 02/01/19 Range/Units 08:44 13:51 17:05 WBC (3.8-10.6) k/uL RBC (3.80-5.40) m/uL Hgb (11.4-16.0) gm/dL Hct (34.0-46.0) % Neutrophils # (1.3-7.7) k/uL Sodium (137-145) mmol/L Chloride (98-107) mmol/L BUN (7-17) mg/dL Glucose (74-99) mg/dL POC Glucose (mg/dL) 283 H (75-99) mg/dL Calcium (8.4-10.2) mg/dL Iron 10 L (50-170) ug/dL TIBC 217 L (228-460) ug/dL Iron Saturation 4.61 L (12.00-45.00) Total Protein (6.3-8.2) g/dL Albumin (3.5-5.0) g/dL TSH 5.810 H (0.465-4.680) mIU/L 02/01/19 02/02/19 02/02/19 Range/Units 20:01 07:07 07:23 WBC 11.5 H (3.8-10.6) k/uL RBC 2.52 L (3.80-5.40) m/uL Hgb 7.5 L (11.4-16.0) gm/dL Hct 22.2 L (34.0-46.0) % Neutrophils # 8.7 H (1.3-7.7) k/uL Sodium (137-145) mmol/L Chloride (98-107) mmol/L BUN (7-17) mg/dL Glucose (74-99) mg/dL POC Glucose (mg/dL) 333 H 181 H (75-99) mg/dL Calcium (8.4-10.2) mg/dL Iron (50-170) ug/dL TIBC (228-460) ug/dL Iron Saturation (12.00-45.00) Total Protein (6.3-8.2) g/dL Albumin (3.5-5.0) g/dL TSH (0.465-4.680) mIU/L 02/02/19 02/02/19 Range/Units 07:23 11:48 WBC (3.8-10.6) k/uL RBC (3.80-5.40) m/uL Hgb (11.4-16.0) gm/dL Hct (34.0-46.0) % Neutrophils # (1.3-7.7) k/uL Sodium 127 L (137-145) mmol/L Chloride 95 L (98-107) mmol/L BUN 22 H (7-17) mg/dL Glucose 168 H (74-99) mg/dL POC Glucose (mg/dL) 302 H (75-99) mg/dL Calcium 8.2 L (8.4-10.2) mg/dL Iron (50-170) ug/dL TIBC (228-460) ug/dL Iron Saturation (12.00-45.00) Total Protein 4.9 L (6.3-8.2) g/dL Albumin 2.5 L (3.5-5.0) g/dL TSH (0.465-4.680) mIU/L Microbiology - Last 24 Hours (Table) 01/31/19 10:00 Urine Culture - Final Urine,Catheterized Assessment and Plan Plan: 1. Left hip fracture status post fall. Status post left hip hemiarthroplasty. currently postop day 2 2. New-onset A. fib with RVR. Patient does reports she had incident of A. fib proximally 15 years ago at that time patient was not started on medication anticoagulation. Per nursing staff EKG showing A. fib with RVR heart rate in the 120s. Patient is asymptomatic. Patient started on eliquis per cardiology. TSH within normal limits at 2.570. Magnesium 1.7. 2-D echo has been ordered per cardiology 3. History of diabetes mellitus type 2. Home long-acting medication has been ordered along with sliding scale coverage. Patient reports she does follow with endocrinology. Last hemoglobin A1c 2 weeks ago 8.0 4. History of atrial fibrillation possibly 15 years ago. Patient reports this was an isolated incident did not require anticoagulation no further episodes. EKG completed in ER showing normal sinus rhythm. Voltage criteria for left ventricular hypertrophy 5. History of hyperlipidemia 6. History of essential hypertension 7. Urinary tract infection. UA showing small amount of leukocyte Estrace. Patients are Rocephin. Urine culture ordered 8. Hyponatremia. Sodium low at 124. Continue normal saline at 75. Nephrology services have been consulted 9. Anemia. Iron studies ordered. Stool for occult blood ordered. Hemoglobin 7.5 Today patient was seen and examined Medication and labs were reviewed Input from consultants Dr. Garcia and Dr. Lai reviewed Recheck labs and follow-up in a.m.
[2019-02-02 17:16] LABS: Glucose,Whole Blood 287 mg/dL (75-99)
[2019-02-02 18:30] LABS: Calcium 8.2 mg/dL (8.4-10.2); Potassium 5.6 mmol/L (3.5-5.1)
[2019-02-02 20:10] LABS: Potassium 5.2 mmol/L (3.5-5.1)
[2019-02-02] MEDS: ASCORBIC ACID 500 MG TAB PO SCH (20:39)
[2019-02-02] MEDS: CHOLECALCIFEROL 1,000 UNIT TAB PO SCH (20:39)
[2019-02-02] MEDS: ATORVASTATIN 10 MG TAB PO SCH (20:39)
[2019-02-02] MEDS: SENNOSIDES-DOCUSATE SODIUM 1 EACH TAB PO SCH (20:40)
[2019-02-02] MEDS: INSULIN DETEMIR (LEVEMIR) 100 UNIT/ML SYR SQ SCH (20:40)
[2019-02-02 20:41] LABS: Glucose,Whole Blood 290 mg/dL (75-99)
[2019-02-03] MEDS: SODIUM CHLORIDE 0.9% 1,000 ML IV SCH (00:18)
[2019-02-03 01:47] LABS: Iron Saturation 16.85 (12.00-45.00)
[2019-02-03] MEDS: HYDROcodone/APAP 7.5-325MG 1 EACH TAB PO PRN (06:23)
[2019-02-03 06:57] LABS: Glucose,Whole Blood 151 mg/dL (75-99)
[2019-02-03 07:49] LABS: Albumin 2.5 g/dL (3.5-5.0); Calcium 8.4 mg/dL (8.4-10.2); Potassium 5.3 mmol/L (3.5-5.1); Total Bilirubin 0.7 mg/dL (0.2-1.3); Total Protein 4.9 g/dL (6.3-8.2)
[2019-02-03] MEDS: INSULIN ASPART (NovoLOG) 100 UNIT/ML VIAL SQ SCH ×7 (08:02→20:28)
[2019-02-03] MEDS: METOPROLOL TARTRATE 25 MG TAB PO SCH ×2 (08:03→20:27)
[2019-02-03] MEDS: MIDODRINE 5 MG TAB PO SCH ×2 (08:03→17:56)
[2019-02-03] MEDS: APIXABAN 5 MG TAB PO SCH (08:03)
[2019-02-03 08:09] LABS: Basophils # (A) 0.1 k/uL (0-0.2); Basophils % (A) 0 %; Eosinophils # (A) 0.4 k/uL (0-0.7); Eosinophils % (A) 4 %; Lymphocytes # (A) 1.8 k/uL (1.0-4.8); Lymphocytes % (A) 17 %; MCH 29.9 pg (25.0-35.0); MCHC 34.1 g/dL (31.0-37.0); MCV 87.6 fL (80.0-100.0); Mean Platelet Volume 7.9; Monocytes # (A) 0.8 k/uL (0-1.0); Monocytes % (A) 7 %; Neutrophils # (A) 7.4 k/uL (1.3-7.7); Neutrophils % (A) 69 %; Platelet Count 256 k/uL (150-450); RBC 2.25 m/uL (3.80-5.40); RDW 14.4 % (11.5-15.5); WBC 10.7 k/uL (3.8-10.6)
[2019-02-03 08:24] LABS: HCT 19.7 % (34.0-46.0); HGB 6.7 gm/dL (11.4-16.0)
--- NOTE | 2019-02-03 08:29 | P.PN ---
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 Workup has shown urine osmolality is 608 urine sodium of 12. Uric acid not available. Serum cortisol level is high at 24 and serum TSH is slightly high at 5.8. 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 Her echocardiogram shows 55-60% ejection fraction. She is known with chronic hypotension and is on midodrine at home.Her past history significant for atrial fibrillation, and diabetes. Her sodium was 132 on admission went down to 124. With normal saline it did drop. She was started on 1 dose of Lasix because of concern about volume overload. She is somewhat hypotensive and is on midodrine as well. This morning she is feeling much better appetite is good. She is trying to restrain her fluid intake. Denies any cough shortness of breath headache dizziness. No nausea vomiting diarrhea. Her Allen catheter is out. Her intake is 1218 and output is 1750 Objective - Vital Signs Vital signs: Vital Signs Temp 98.3 F 02/03/19 08:00 Pulse 79 02/03/19 08:00 Resp 16 02/03/19 08:00 BP 105/62 02/03/19 08:00 Pulse Ox 94 L 02/03/19 08:00 Intake & Output 02/02/19 02/03/19 02/03/19 18:59 06:59 18:59 Intake Total 1118 100 240 Output Total 500 1250 Balance 618 -1150 240 Intake: Oral 1118 100 240 Output: Urine 500 1250 Other: Voiding Method Indwelling Catheter Indwelling Catheter On examination is awake alert oriented comfortable HEENT exam no JVP neck is supple no facial asymmetry Lungs clear to auscultation good air entry bilaterally Heart sounds unremarkable no murmur rub gallop Abdomen soft nontender Extremity exam is trace edema Neurologically awake alert oriented - Labs CBC & Chem 7: 02/02/19 07:23 02/03/19 07:00 Labs: Abnormal Lab Results - Last 24 Hours (Table) 06/15/19 06/15/19 06/15/19 Range/Units 07:23 07:23 11:48 WBC 11.5 H (3.8-10.6) k/uL RBC 2.52 L (3.80-5.40) m/uL Hgb 7.5 L (11.4-16.0) gm/dL Hct 22.2 L (34.0-46.0) % Neutrophils # 8.7 H (1.3-7.7) k/uL Sodium 127 L (137-145) mmol/L Potassium (3.5-5.1) mmol/L Chloride 95 L (98-107) mmol/L BUN 22 H (7-17) mg/dL Glucose 168 H (74-99) mg/dL POC Glucose (mg/dL) 302 H (75-99) mg/dL Calcium 8.2 L (8.4-10.2) mg/dL Iron (50-170) ug/dL TIBC (228-460) ug/dL AST (14-36) U/L Total Protein 4.9 L (6.3-8.2) g/dL Albumin 2.5 L (3.5-5.0) g/dL 02/02/19 02/02/19 02/02/19 Range/Units 17:03 18:02 19:36 WBC (3.8-10.6) k/uL RBC (3.80-5.40) m/uL Hgb (11.4-16.0) gm/dL Hct (34.0-46.0) % Neutrophils # (1.3-7.7) k/uL Sodium 123 L (137-145) mmol/L Potassium 5.6 H (3.5-5.1) mmol/L Chloride 94 L (98-107) mmol/L BUN 27 H (7-17) mg/dL Glucose 344 H (74-99) mg/dL POC Glucose (mg/dL) 287 H (75-99) mg/dL Calcium 8.2 L (8.4-10.2) mg/dL Iron 31 L (50-170) ug/dL TIBC 184 L (228-460) ug/dL AST (14-36) U/L Total Protein (6.3-8.2) g/dL Albumin (3.5-5.0) g/dL 06/02/02/19 02/03/19 Range/Units 19:36 20:38 06:49 WBC (3.8-10.6) k/uL RBC (3.80-5.40) m/uL Hgb (11.4-16.0) gm/dL Hct (34.0-46.0) % Neutrophils # (1.3-7.7) k/uL Sodium 124 L (137-145) mmol/L Potassium 5.2 H (3.5-5.1) mmol/L Chloride 93 L (98-107) mmol/L BUN 26 H (7-17) mg/dL Glucose 290 H (74-99) mg/dL POC Glucose (mg/dL) 290 H 151 H (75-99) mg/dL Calcium 8.0 L (8.4-10.2) mg/dL Iron (50-170) ug/dL TIBC (228-460) ug/dL AST (14-36) U/L Total Protein (6.3-8.2) g/dL Albumin (3.5-5.0) g/dL 02/03/19 Range/Units 07:00 WBC (3.8-10.6) k/uL RBC (3.80-5.40) m/uL Hgb (11.4-16.0) gm/dL Hct (34.0-46.0) % Neutrophils # (1.3-7.7) k/uL Sodium 126 L (137-145) mmol/L Potassium 5.3 H (3.5-5.1) mmol/L Chloride 96 L (98-107) mmol/L BUN 23 H (7-17) mg/dL Glucose 153 H (74-99) mg/dL POC Glucose (mg/dL) (75-99) mg/dL Calcium (8.4-10.2) mg/dL Iron (50-170) ug/dL TIBC (228-460) ug/dL AST 39 H (14-36) U/L Total Protein 4.9 L (6.3-8.2) g/dL Albumin 2.5 L (3.5-5.0) g/dL Assessment and Plan Plan: Impression 1. 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 Workup TSH is 5.8 slightly high, cortisol 24. Urine osmolality 608 and urine sodium 12. Uric acid not available. Sodium improved to 126 on fluid restriction, 2. Admitted with fall and fracture of left femur status post surgery 01/30/2019. 3. History of atrial fibrillation. 4. Chronic hypotension on midodrine. 5. Significant anemia hemoglobin went down from 13.2 at admission to 7.5. 6. Mild hyperkalemia secondary to transcellular shift from high blood sugar. 7. Iron deficiency anemia Recommendation. 1. Maintain fluid restriction. 2. Control blood sugars to improve the potassium no need for any Kayexalate or other treatment. 3. Repeat labs tomorrow. 4. Increase protein intake 5. Orthostatoc BP and HR , call results to me. 6. IV Ferrlecit 125 mg today and tomorrow
[2019-02-03] MEDS ORDERED: SODIUM FERRIC GLUCONAT-SUCROSE 125 MG in SODIUM CHLORIDE 0.9% 100 ML IVPB SCH (09:00)
--- NOTE | 2019-02-03 10:06 | P.PN ---
Subjective Progress Note Date: 02/03/19 Principal diagnosis: Status post left hip hemiarthroplasty This is an 83 year-old female post left hip hemiarthroplasty. This is post-op day 4. The patient was evaluated at the bedside today. The patient denies nausea, vomiting, abdominal pain, shortness of breath, and chest pain this morning. She states her pain is controlled at this time. The patient has been up with physical therapy but is only transferring to a chair. She has been closely followed by internal medicine for hyponatremia and nephrology has been consulted. Sodium level this morning is 126. Her hemoglobin is 6.7 today and she is scheduled to received one unit of PRBCs. She also had an episode of A. fib that cardiology has been following and is now in a sinus rhythm. We are awaiting final clearance from internal medicine for transfer to rehab. Objective - Vital Signs Vital signs: Vital Signs Temp 98.3 F 02/03/19 08:00 Pulse 79 02/03/19 08:00 Resp 16 02/03/19 08:00 BP 105/62 02/03/19 08:00 Pulse Ox 94 L 02/03/19 08:00 Intake & Output 02/02/19 02/03/19 02/03/19 18:59 06:59 18:59 Intake Total 1118 100 240 Output Total 500 1250 Balance 618 -1150 240 Intake: Oral 1118 100 240 Output: Urine 500 1250 Other: Voiding Method Indwelling Catheter Indwelling Catheter - Exam The patient does not appear in acute distress. Alert and orientated x3. Dressing is intact. There is a small amount of sanguinous drainage on the dressing this morning. Incision appears fine with no erythema or active drainage. Ecchymosis is present to the incision site. Calf is soft and nontender. Good foot and ankle motion without difficulty. Sensation and circulatory status is intact. - Labs CBC & Chem 7: 02/03/19 07:00 02/03/19 07:00 Labs: Abnormal Lab Results - Last 24 Hours (Table) 02/02/19 02/02/19 02/02/19 Range/Units 11:48 17:03 18:02 WBC (3.8-10.6) k/uL RBC (3.80-5.40) m/uL Hgb (11.4-16.0) gm/dL Hct (34.0-46.0) % Sodium 123 L (137-145) mmol/L Potassium 5.6 H (3.5-5.1) mmol/L Chloride 94 L (98-107) mmol/L BUN 27 H (7-17) mg/dL Glucose 344 H (74-99) mg/dL POC Glucose (mg/dL) 302 H 287 H (75-99) mg/dL Calcium 8.2 L (8.4-10.2) mg/dL Iron (50-170) ug/dL TIBC (228-460) ug/dL AST (14-36) U/L Total Protein (6.3-8.2) g/dL Albumin (3.5-5.0) g/dL 02/02/19 02/02/19 02/02/19 Range/Units 19:36 19:36 20:38 WBC (3.8-10.6) k/uL RBC (3.80-5.40) m/uL Hgb (11.4-16.0) gm/dL Hct (34.0-46.0) % Sodium 124 L (137-145) mmol/L Potassium 5.2 H (3.5-5.1) mmol/L Chloride 93 L (98-107) mmol/L BUN 26 H (7-17) mg/dL Glucose 290 H (74-99) mg/dL POC Glucose (mg/dL) 290 H (75-99) mg/dL Calcium 8.0 L (8.4-10.2) mg/dL Iron 31 L (50-170) ug/dL TIBC 184 L (228-460) ug/dL AST (14-36) U/L Total Protein (6.3-8.2) g/dL Albumin (3.5-5.0) g/dL 02/03/19 02/03/19 02/03/19 Range/Units 06:49 07:00 07:00 WBC 10.7 H (3.8-10.6) k/uL RBC 2.25 L (3.80-5.40) m/uL Hgb 6.7 L* (11.4-16.0) gm/dL Hct 19.7 L* (34.0-46.0) % Sodium 126 L (137-145) mmol/L Potassium 5.3 H (3.5-5.1) mmol/L Chloride 96 L (98-107) mmol/L BUN 23 H (7-17) mg/dL Glucose 153 H (74-99) mg/dL POC Glucose (mg/dL) 151 H (75-99) mg/dL Calcium (8.4-10.2) mg/dL Iron (50-170) ug/dL TIBC (228-460) ug/dL AST 39 H (14-36) U/L Total Protein 4.9 L (6.3-8.2) g/dL Albumin 2.5 L (3.5-5.0) g/dL Assessment and Plan (1) Fall Current Visit: Yes Status: Acute Code(s): W19.XXXA - UNSPECIFIED FALL, INITIAL ENCOUNTER SNOMED Code(s): 0216652 (2) History of hemiarthroplasty of left hip Current Visit: Yes Status: Acute Code(s): Z96.642 - PRESENCE OF LEFT ARTIFICIAL HIP JOINT SNOMED Code(s): 226510001 (3) Hip fracture Current Visit: Yes Status: Acute Code(s): S72.009A - FRACTURE OF UNSP PART OF NECK OF UNSP FEMUR, INIT SNOMED Code(s): 718317080 (4) Atrial fibrillation Current Visit: Yes Status: Acute Code(s): I48.91 - UNSPECIFIED ATRIAL FIBRILLATION SNOMED Code(s): 89799893 (5) Diabetes mellitus Current Visit: Yes Status: Acute Code(s): E11.9 - TYPE 2 DIABETES MELLITUS WITHOUT COMPLICATIONS SNOMED Code(s): 58438492 (6) Hyperlipidemia Current Visit: Yes Status: Acute Code(s): E78.5 - HYPERLIPIDEMIA, UNSPECIFIED SNOMED Code(s): 00447690 (7) Hypertension Current Visit: Yes Status: Acute Code(s): I10 - ESSENTIAL (PRIMARY) HYPERTENSION SNOMED Code(s): 71288892 Plan: 1. Continue pain control 2. Anticoagulation with Eliquis 3. Continue physical therapy and ambulation 4. Continue to follow closely with internal medicine and nephrology 5. Anticipate discharge to [facility] when cleared by internal medicine, nephrology, and cardiology. This will likely take place on Monday.
[2019-02-03] MEDS: SODIUM FERRIC GLUCONAT-SUCROSE 125 MG in SODIUM CHLORIDE 0.9% 100 ML IVPB SCH (11:38)
--- NOTE | 2019-02-03 11:48 | P.PN ---
Subjective Progress Note Date: 02/03/19 This is an 83-year-old female patient of Dr. Samuel. Patient presented to ER after sustaining a fall. Patient reports she was playing bridge when she tripped over some increased pain and landed on her left hip. Patient denies hitting her head or loss of consciousness. Patient denies any dizziness prior to episode. Hip x-ray completed showing acute subcapital fracture through left proximal humerus. Patient reports that she had episode of A. fib approximately 15 years ago. Patient reports that she was not placed on anticoagulation and never had an occurrence again. Additional history includes diabetes mellitus in which he follows with endocrinology, hyperlipidemia and hypertension. Patient denies any history of cardiac conditions. Patient denies history of CHF,COPD or asthma. Patient denies smoking. At this time patient denies any chest pain or shortness of breath. Patient denies nausea vomiting or diarrhea. Patient denies any urinary burning or frequency. Patient low grade temp of 99.9 throughout night this is likely reactive. Chest x-ray completed showing chronic parenchymal changes and cardiomegaly without acute pulmonary process. EKG completed showing some normal sinus rhythm voltage criteria for left ventricular hypertrophy. Urinary analysis has been ordered. orthopedic services have been consulted planning left hip gypsy arthroplasty today. On 01/31/2019 patient is alert and oriented 3. Patient reports she feels well after surgery. Upon auscultation patient was found to have elevated heart rate possibly irregular. EKG has been ordered orders for telemetry placed. EKG that was completed yesterday showed normal sinus rhythm. Patient denies any feeling of palpitations or heart racing. Patient denies shortness of breath. Patient's sodium also at 124 continue normal saline at 75. At this time patient denies nausea vomiting or diarrhea. Patient denies chest pain or shortness of breath. Patient denies any urinary burning or frequency. On 02/01/2019 patient alert and oriented 3. Patient was found to be in A. fib with RVR yesterday. Cardiology consulted patient started on eliquis. Patient's sodium remains low despite fluid at 124. Patient denies excessive water intake. Will consult nephrology services at this time. Patient denies any chest pain or shortness of breath. Patient denies nausea vomiting or diarrhea. Patient denies any urinary burning or frequency. On 02/02/2019 patient was seen and examined on the medical floor she is alert and oriented 3 in no apparent distress she was able to stand and walk a few steps with physical therapy there is no fever or chills no headache or dizziness no chest pain no shortness of breath no cough no nausea or vomiting no abdominal pain no diarrhea and no urinary symptoms patient was seen by nephrology she is maintained on fluid restriction she has hyponatremia due to SIADH sodium today is up to 127 On 02/03/2019 patient is feeling better, her pain is better controlled, she is sitting up in a chair, sodium is still low down to 126 this morning hemoglobin is down to 6.7, patient examined, she has a large bruise around the surgical area, she denies any blood in the urine or in the stools. Clinically patient denies any symptoms other than pain in her lower extremity, there is no fever or chills no headache or dizziness no chest pain no shortness of breath no cough no nausea or vomiting no abdominal pain no diarrhea and no urinary symptoms. At this point will hold Eliquis, give 1 unit of red blood cell transfusion, check stool Hemoccult, consult gastroenterology to assess for need for GI workup for anemia Objective - Vital Signs Vital signs: Vital Signs Temp 98.3 F 02/03/19 08:00 Pulse 79 02/03/19 08:00 Resp 16 02/03/19 08:00 BP 105/62 02/03/19 08:00 Pulse Ox 94 L 02/03/19 08:00 Intake & Output 02/02/19 02/03/19 02/03/19 18:59 06:59 18:59 Intake Total 1118 100 240 Output Total 500 1250 Balance 618 -1150 240 Intake: Oral 1118 100 240 Output: Urine 500 1250 Other: Voiding Method Indwelling Catheter Indwelling Catheter - Exam In general patient is alert and oriented 3 in no apparent distress Head normocephalic and atraumatic Neck supple no JVD no goiter Lungs clear to auscultation bilaterally no wheezing or crackles Heart Irregular no gallops no murmurs Abdomen is soft nontender nondistended positive bowel sounds no hepatosplenomegaly Extremities no edema. Left hip dressing clean dry and intact Neuro no gross focal neurological deficit - Labs CBC & Chem 7: 02/03/19 07:00 02/03/19 07:00 Labs: Abnormal Lab Results - Last 24 Hours (Table) 06/02/02/19 02/02/19 Range/Units 11:48 17:03 18:02 WBC (3.8-10.6) k/uL RBC (3.80-5.40) m/uL Hgb (11.4-16.0) gm/dL Hct (34.0-46.0) % Sodium 123 L (137-145) mmol/L Potassium 5.6 H (3.5-5.1) mmol/L Chloride 94 L (98-107) mmol/L BUN 27 H (7-17) mg/dL Glucose 344 H (74-99) mg/dL POC Glucose (mg/dL) 302 H 287 H (75-99) mg/dL Calcium 8.2 L (8.4-10.2) mg/dL Iron (50-170) ug/dL TIBC (228-460) ug/dL AST (14-36) U/L Total Protein (6.3-8.2) g/dL Albumin (3.5-5.0) g/dL 02/02/19 02/02/19 02/02/19 Range/Units 19:36 19:36 20:38 WBC (3.8-10.6) k/uL RBC (3.80-5.40) m/uL Hgb (11.4-16.0) gm/dL Hct (34.0-46.0) % Sodium 124 L (137-145) mmol/L Potassium 5.2 H (3.5-5.1) mmol/L Chloride 93 L (98-107) mmol/L BUN 26 H (7-17) mg/dL Glucose 290 H (74-99) mg/dL POC Glucose (mg/dL) 290 H (75-99) mg/dL Calcium 8.0 L (8.4-10.2) mg/dL Iron 31 L (50-170) ug/dL TIBC 184 L (228-460) ug/dL AST (14-36) U/L Total Protein (6.3-8.2) g/dL Albumin (3.5-5.0) g/dL 02/03/19 02/03/19 02/03/19 Range/Units 06:49 07:00 07:00 WBC 10.7 H (3.8-10.6) k/uL RBC 2.25 L (3.80-5.40) m/uL Hgb 6.7 L* (11.4-16.0) gm/dL Hct 19.7 L* (34.0-46.0) % Sodium 126 L (137-145) mmol/L Potassium 5.3 H (3.5-5.1) mmol/L Chloride 96 L (98-107) mmol/L BUN 23 H (7-17) mg/dL Glucose 153 H (74-99) mg/dL POC Glucose (mg/dL) 151 H (75-99) mg/dL Calcium (8.4-10.2) mg/dL Iron (50-170) ug/dL TIBC (228-460) ug/dL AST 39 H (14-36) U/L Total Protein 4.9 L (6.3-8.2) g/dL Albumin 2.5 L (3.5-5.0) g/dL Assessment and Plan Plan: 1. Left hip fracture status post fall. Status post left hip hemiarthroplasty. currently postop day 4 2. New-onset A. fib with RVR. Patient does reports she had incident of A. fib proximally 15 years ago at that time patient was not started on medication anticoagulation. Per nursing staff EKG showing A. fib with RVR heart rate in the 120s. Patient is asymptomatic. Patient started on eliquis per cardiology. This will be held today due to significant anemia, and large bruising around the surgical area. TSH within normal limits at 2.570. Magnesium 1.7. 2-D echo has been ordered per cardiology 3. History of diabetes mellitus type 2. Home long-acting medication has been ordered along with sliding scale coverage. Patient reports she does follow with endocrinology. Last hemoglobin A1c 2 weeks ago 8.0 4. History of atrial fibrillation possibly 15 years ago. Patient reports this was an isolated incident did not require anticoagulation no further episodes. EKG completed in ER showing normal sinus rhythm. Voltage criteria for left ventricular hypertrophy 5. History of hyperlipidemia 6. History of essential hypertension 7. Urinary tract infection. UA showing small amount of leukocyte Estrace. Patients are Rocephin. Urine culture ordered 8. Hyponatremia. Sodium low at 124. Continue normal saline at 75. Nephrology services have been consulted 9. Anemia. Iron studies ordered. Stool for occult blood ordered. Hemoglobin 6.7 patient will be given 1 unit of red blood cells today Today patient was seen and examined Medication and labs were reviewed Input from consultants Dr. Garcia and Dr. Lai reviewed Recheck labs and follow-up in a.m.
[2019-02-03 11:50] LABS: Glucose,Whole Blood 283 mg/dL (75-99)
[2019-02-03] MEDS: MULTIVITAMINS, THERA 1 EACH TAB PO SCH (12:20)
[2019-02-03 17:03] LABS: Glucose,Whole Blood 137 mg/dL (75-99)
[2019-02-03] MEDS: CHOLECALCIFEROL 1,000 UNIT TAB PO SCH (20:25)
[2019-02-03] MEDS: ASCORBIC ACID 500 MG TAB PO SCH (20:26)
[2019-02-03] MEDS: ATORVASTATIN 10 MG TAB PO SCH (20:27)
[2019-02-03] MEDS: SENNOSIDES-DOCUSATE SODIUM 1 EACH TAB PO SCH (20:27)
[2019-02-03 20:28] LABS: Glucose,Whole Blood 171 mg/dL (75-99)
[2019-02-03] MEDS: INSULIN DETEMIR (LEVEMIR) 100 UNIT/ML SYR SQ SCH (20:28)
[2019-02-04 06:57] LABS: Glucose,Whole Blood 225 mg/dL (75-99)
[2019-02-04] MEDS: INSULIN ASPART (NovoLOG) 100 UNIT/ML VIAL SQ SCH ×7 (07:44→21:09)
[2019-02-04] MEDS: MIDODRINE 5 MG TAB PO SCH ×3 (07:45→17:46)
[2019-02-04] MEDS: METOPROLOL TARTRATE 25 MG TAB PO SCH ×2 (07:45→22:07)
[2019-02-04 08:10] LABS: Basophils # (A) 0.1 k/uL (0-0.2); Basophils % (A) 1 %; Eosinophils # (A) 0.4 k/uL (0-0.7); Eosinophils % (A) 3 %; HCT 24.2 % (34.0-46.0); Lymphocytes # (A) 1.9 k/uL (1.0-4.8); Lymphocytes % (A) 16 %; MCH 29.3 pg (25.0-35.0); MCHC 32.9 g/dL (31.0-37.0); MCV 89.1 fL (80.0-100.0); Mean Platelet Volume 7.6; Monocytes # (A) 0.7 k/uL (0-1.0); Monocytes % (A) 6 %; Neutrophils # (A) 8.7 k/uL (1.3-7.7); Neutrophils % (A) 73 %; Platelet Count 269 k/uL (150-450); RBC 2.72 m/uL (3.80-5.40); RDW 14.3 % (11.5-15.5); WBC 11.9 k/uL (3.8-10.6)
[2019-02-04 08:18] LABS: ALT 38 U/L (9-52); AST 56 U/L (14-36); African American GFR (CKD) >90 (>60 ml/min/1.73 sqM); Albumin 2.8 g/dL (3.5-5.0); Alkaline Phosphatase 76 U/L (38-126); Anion Gap 8 mmol/L; Blood Urea Nitrogen 21 mg/dL (7-17); Calcium 8.6 mg/dL (8.4-10.2); Carbon Dioxide 25 mmol/L (22-30); Chloride 96 mmol/L (98-107); Glucose 210 mg/dL (74-99); Potassium 5.1 mmol/L (3.5-5.1); Sodium 129 mmol/L (137-145); Total Bilirubin 1.6 mg/dL (0.2-1.3); Total Protein 5.3 g/dL (6.3-8.2)
[2019-02-04] MEDS ORDERED: MAGNESIUM HYDROXIDE 2,400 MG/10 ML CUP PO ONE (08:44)
--- NOTE | 2019-02-04 08:47 | P.CONS ---
History of Present Illness - Reason for Consult Consult date: 02/04/19 Anemia Requesting physician: Trino Hart - Chief Complaint Status post fall - History of Present Illness 83-year-old female status post fall postop day #5 left displaced femoral neck fracture left hip hemiarthroplasty. Consult requested for postoperative anemia. No history GI bleed. Denies hematemesis hematochezia or melena. No bowel movement 1 week. Denies abdominal pain. Patient developed ecchymosis the left hip region of the last few days. Admission hemoglobin 12.3 decreased to 6.7 yesterday presently 8.0 receive 1 unit of blood. BUN 21. Creatinine 0.6. Total bilirubin within normal limits increased to 1.6 today. AST 56. ALT 30. AP 76. No history of EGD. Last colonoscopy 6 years ago to her memory was unremarkable. Review of Systems Constitutional: Denies fever, chills, sweats, weight gain, or loss. HEENT: Negative for migraines, blurred vision or loss, earaches, drainage, tinnitus, oral mucosal lesions, dysphagia, or odynophagia. CARDIAC: Negative for chest pain, arrhythmias, or palpitation. RESPIRATORY: Negative for shortness of breath, hemoptysis, cough, or sputum production. GI: See HPI for pertinent findings. : Negative for hematuria, urgency, frequency, polyuria, or dysuria. GYNc: Negative vaginal discharge. MUSCULOSKELETAL: Status post fall left hip pain on admission. NEUROLOGIC: Negative for stroke or TIA. ENDOCRINE: Negative for thyroid problems. SKIN: Negative for rash or itching. PSYCHIATRIC: Negative history for depression and anxiety Past Medical History Past Medical History: Atrial Fibrillation, Diabetes Mellitus, Hyperlipidemia, Hypertension Additional Past Medical History / Comment(s): a-fib once 15 years ago, left hip fx History of Any Multi-Drug Resistant Organisms: None Reported Past Surgical History: Bladder Surgery Additional Past Surgical History / Comment(s): bladder suspension, heart cath 15 years ago Past Psychological History: No Psychological Hx Reported Smoking Status: Never smoker Past Alcohol Use History: None Reported Past Drug Use History: None Reported - Past Family History Father Family Medical History: Cancer Mother Family Medical History: Myocardial Infarction ([place]), Pneumonia Medications and Allergies Home Medications Medication Instructions Recorded Confirmed Type Ascorbic Acid [Vitamin C] 1,000 mg PO HS 01/29/19 01/29/19 History Aspirin EC [Ecotrin Low Dose] 81 mg PO HS 01/29/19 01/29/19 History Cholecalciferol [Vitamin D3 (25 5,000 unit PO HS 01/29/19 01/29/19 History Mcg = 1000 Iu)] INSULIN ASPART (NovoLOG) [NovoLOG 6 unit SQ AC-BID 01/29/19 01/29/19 History (formulary)] INSULIN ASPART (NovoLOG) [NovoLOG 7 unit SQ AC-LUNCH 01/29/19 01/29/19 History (formulary)] INSULIN ASPART (NovoLOG) [NovoLOG See Protocol SQ AC-TID PRN 01/29/19 01/29/19 History (formulary)] Insulin Glargine [Lantus] 15 unit SQ HS 01/29/19 01/29/19 History Metoprolol Tartrate [Lopressor] 12.5 mg PO HS 01/29/19 01/29/19 History Simvastatin [Zocor] 20 mg PO HS 01/29/19 01/29/19 History Docusate [Colace] 100 mg PO BID #60 capsule 02/01/19 Rx HYDROcodone/APAP 7.5-325MG [Colony 1 - 2 each PO Q6HR PRN #56 tab 02/01/19 Rx 7.5-325] Allergies Allergy/AdvReac Type Severity Reaction Status Date / Time No Known Allergies Allergy Verified 01/29/19 17:58 Physical Exam Vitals: Vital Signs Temp Pulse Pulse Pulse Pulse Resp BP 02/04/19 07:54 18 02/04/19 06:50 97.8 F 65 18 02/04/19 03:10 16 02/04/19 01:45 98.4 F 69 17 02/04/19 00:45 16 02/03/19 19:54 99.0 F 82 16 117/64 02/03/19 19:30 16 02/03/19 17:58 02/03/19 16:35 97.7 F 71 16 126/72 02/03/19 16:06 98.6 F 75 16 110/75 02/03/19 16:00 16 02/03/19 15:56 98.4 F 68 16 106/68 02/03/19 15:40 98.3 F 67 16 BP BP Pulse Ox 02/04/19 07:54 02/04/19 06:50 94/58 97 02/04/19 03:10 02/04/19 01:45 115/71 96 02/04/19 00:45 02/03/19 19:54 92 L 02/03/19 19:30 02/03/19 17:58 111/53 02/03/19 16:35 96 02/03/19 16:06 02/03/19 16:00 02/03/19 15:56 98 02/03/19 15:40 102/66 96 Intake and Output 02/03/19 02/04/19 02/04/19 22:59 06:59 14:59 Intake Total 410 Balance 410 Intake: Intake, IV Titration 100 Amount Sodium Ferric Gluconat- 100 Sucrose 125 mg In Sodium Chloride 0.9% 100 ml @ 100 mls/hr IVPB DAILY [facility] Rx#:[id number] Blood Product 310 Rc As-3 Unit 310 [id number] Other: # Voids 1 2 General appearance: The patient is alert, oriented, in no acute distress. HET: Head is normocephalic and atraumatic. Pupils are equal and reactive. Oropharynx is clear without lesions. Neck: Supple without lymphadenopathy. Trachea midline. Heart: S1 S2. Regular rate and rhythm. Lungs: No crackles or wheezes are heard. Abdomen: Soft, nontender, nondistended with bowel sounds. No peritoneal signs. No palpable organomegaly or masses. Extremities: Left hip with ecchymosis +1 edema dressing intact dry no active bleeding. Radial and pedal pulses are 2/4 bilaterally. Neurological: No focal deficits. Strength and sensation are grossly intact. Results CBC & Chem 7: 02/04/19 07:25 02/04/19 07:25 Labs: Abnormal Lab Results - Last 24 Hours (Table) 02/03/19 02/03/19 02/03/19 Range/Units 07:00 09:37 11:48 WBC (3.8-10.6) k/uL RBC (3.80-5.40) m/uL Hgb 6.7 L* (11.4-16.0) gm/dL Hct 19.7 L* (34.0-46.0) % Neutrophils # (1.3-7.7) k/uL Sodium (137-145) mmol/L Chloride (98-107) mmol/L BUN (7-17) mg/dL Glucose (74-99) mg/dL POC Glucose (mg/dL) 283 H (75-99) mg/dL Total Bilirubin (0.2-1.3) mg/dL AST (14-36) U/L Total Protein (6.3-8.2) g/dL Albumin (3.5-5.0) g/dL Crossmatch See Detail 02/03/19 02/03/19 02/04/19 Range/Units 17:00 20:26 06:56 WBC (3.8-10.6) k/uL RBC (3.80-5.40) m/uL Hgb (11.4-16.0) gm/dL Hct (34.0-46.0) % Neutrophils # (1.3-7.7) k/uL Sodium (137-145) mmol/L Chloride (98-107) mmol/L BUN (7-17) mg/dL Glucose (74-99) mg/dL POC Glucose (mg/dL) 137 H 171 H 225 H (75-99) mg/dL Total Bilirubin (0.2-1.3) mg/dL AST (14-36) U/L Total Protein (6.3-8.2) g/dL Albumin (3.5-5.0) g/dL Crossmatch 02/04/19 02/04/19 Range/Units 07:25 07:25 WBC 11.9 H (3.8-10.6) k/uL RBC 2.72 L (3.80-5.40) m/uL Hgb 8.0 L (11.4-16.0) gm/dL Hct 24.2 L (34.0-46.0) % Neutrophils # 8.7 H (1.3-7.7) k/uL Sodium 129 L (137-145) mmol/L Chloride 96 L (98-107) mmol/L BUN 21 H (7-17) mg/dL Glucose 210 H (74-99) mg/dL POC Glucose (mg/dL) (75-99) mg/dL Total Bilirubin 1.6 H (0.2-1.3) mg/dL AST 56 H (14-36) U/L Total Protein 5.3 L (6.3-8.2) g/dL Albumin 2.8 L (3.5-5.0) g/dL Crossmatch Assessment and Plan (1) Normocytic anemia Narrative/Plan: 83-year-old female status post left hip hemiarthroplasty secondary to fall and fracture with development of ecchymosis to surgical site with a a drop in hemoglobin without overt GI bleeding. Suspect hemoglobin is a component of acute blood loss anemia secondary to subcutaneous tissue bleeding. No clinical evidence to suggest at this time an active GI bleed. Current Visit: Yes Status: Acute Code(s): D64.9 - ANEMIA, UNSPECIFIED SNOMED Code(s): 813284747 (2) History of left hip hemiarthroplasty Current Visit: Yes Status: Acute Code(s): Z96.642 - PRESENCE OF LEFT ARTIFICIAL HIP JOINT SNOMED Code(s): 480332793 (3) Fall Current Visit: Yes Status: Acute Code(s): W19.XXXA - UNSPECIFIED FALL, INITIAL ENCOUNTER SNOMED Code(s): 7299336 Plan: 1. CBC monitoring. Endoscopic exams not indicated at this time. Stool softeners and milk of magnesia for constipation. Thank you for this kind referral and the opportunity to participate in the care of your patient. This consultation was discussed with Dr. Avila. The impression and plan of care have been directed as dictated.
[2019-02-04 08:55] LABS: Hemoglobin A1C 8.5 % (4.0-6.0)
--- NOTE | 2019-02-04 09:57 | P.PN ---
Subjective Progress Note Date: 02/04/19 This is an 83-year-old female patient of Dr. Samuel. Patient presented to ER after sustaining a fall. Patient reports she was playing bridge when she tripped over some increased pain and landed on her left hip. Patient denies hitting her head or loss of consciousness. Patient denies any dizziness prior to episode. Hip x-ray completed showing acute subcapital fracture through left proximal humerus. Patient reports that she had episode of A. fib approximately 15 years ago. Patient reports that she was not placed on anticoagulation and never had an occurrence again. Additional history includes diabetes mellitus in which he follows with endocrinology, hyperlipidemia and hypertension. Patient denies any history of cardiac conditions. Patient denies history of CHF,COPD or asthma. Patient denies smoking. At this time patient denies any chest pain or shortness of breath. Patient denies nausea vomiting or diarrhea. Patient denies any urinary burning or frequency. Patient low grade temp of 99.9 throughout night this is likely reactive. Chest x-ray completed showing chronic parenchymal changes and cardiomegaly without acute pulmonary process. EKG completed showing some normal sinus rhythm voltage criteria for left ventricular hypertrophy. Urinary analysis has been ordered. orthopedic services have been consulted planning left hip gypsy arthroplasty today. On 01/31/2019 patient is alert and oriented 3. Patient reports she feels well after surgery. Upon auscultation patient was found to have elevated heart rate possibly irregular. EKG has been ordered orders for telemetry placed. EKG that was completed yesterday showed normal sinus rhythm. Patient denies any feeling of palpitations or heart racing. Patient denies shortness of breath. Patient's sodium also at 124 continue normal saline at 75. At this time patient denies nausea vomiting or diarrhea. Patient denies chest pain or shortness of breath. Patient denies any urinary burning or frequency. On 02/01/2019 patient alert and oriented 3. Patient was found to be in A. fib with RVR yesterday. Cardiology consulted patient started on eliquis. Patient's sodium remains low despite fluid at 124. Patient denies excessive water intake. Will consult nephrology services at this time. Patient denies any chest pain or shortness of breath. Patient denies nausea vomiting or diarrhea. Patient denies any urinary burning or frequency. On 02/02/2019 patient was seen and examined on the medical floor she is alert and oriented 3 in no apparent distress she was able to stand and walk a few steps with physical therapy there is no fever or chills no headache or dizziness no chest pain no shortness of breath no cough no nausea or vomiting no abdominal pain no diarrhea and no urinary symptoms patient was seen by nephrology she is maintained on fluid restriction she has hyponatremia due to SIADH sodium today is up to 127 On 02/03/2019 patient is feeling better, her pain is better controlled, she is sitting up in a chair, sodium is still low down to 126 this morning hemoglobin is down to 6.7, patient examined, she has a large bruise around the surgical area, she denies any blood in the urine or in the stools. Clinically patient denies any symptoms other than pain in her lower extremity, there is no fever or chills no headache or dizziness no chest pain no shortness of breath no cough no nausea or vomiting no abdominal pain no diarrhea and no urinary symptoms. At this point will hold Eliquis, give 1 unit of red blood cell transfusion, check stool Hemoccult, consult gastroenterology to assess for need for GI workup for anemia On 02/04/2019 patient alert and oriented 3. Sodium is improving to 129. Patient is currently resting comfortably in chair. Patient reports that she st ill having some discomfort to left hip site. Hemoglobin improving to 8.0. Patient was evaluated by GI services no plans for scopes at this time. Patient denies any chest pain or shortness of breath. Patient denies any urinary burning or frequency. Patient denies nausea vomiting or diarrhea. Objective - Vital Signs Vital signs: Vital Signs Temp 97.8 F 02/04/19 06:50 Pulse 65 02/04/19 06:50 Resp 18 02/04/19 07:54 BP 94/58 02/04/19 06:50 Pulse Ox 97 02/04/19 06:50 Intake & Output 02/03/19 02/04/19 02/04/19 18:59 06:59 18:59 Intake Total 240 410 Output Total 200 Balance 40 410 Intake: Intake, IV Titration 100 Amount Sodium Ferric Gluconat- 100 Sucrose 125 mg In Sodium Chloride 0.9% 100 ml @ 100 mls/hr IVPB DAILY [facility] Rx#:[id number] Oral 240 Blood Product 0 310 Rc As-3 Unit 0 310 [id number] Output: Urine 200 Other: # Voids 3 2 - Exam Head normocephalic Neck supple Lungs clear to auscultation bilaterally no wheezing or crackles Heart Irregular elevated HR Abdomen is soft nontender nondistended positive bowel sounds no hepatosplenomega ly Extremities no edema. Left hip dressing clean dry and intact Neuro alert and orientated to 3 - Labs CBC & Chem 7: 02/04/19 07:25 02/04/19 07:25 Labs: Abnormal Lab Results - Last 24 Hours (Table) 02/03/19 02/03/19 02/03/19 Range/Units 07:00 09:37 11:48 WBC (3.8-10.6) k/uL RBC (3.80-5.40) m/uL Hgb (11.4-16.0) gm/dL Hct (34.0-46.0) % Neutrophils # (1.3-7.7) k/uL Sodium (137-145) mmol/L Chloride (98-107) mmol/L BUN (7-17) mg/dL Glucose (74-99) mg/dL POC Glucose (mg/dL) 283 H (75-99) mg/dL Hemoglobin A1c 8.5 H (4.0-6.0) % Total Bilirubin (0.2-1.3) mg/dL AST (14-36) U/L Total Protein (6.3-8.2) g/dL Albumin (3.5-5.0) g/dL Crossmatch See Detail 02/03/19 02/03/19 02/04/19 Range/Units 17:00 20:26 06:56 WBC (3.8-10.6) k/uL RBC (3.80-5.40) m/uL Hgb (11.4-16.0) gm/dL Hct (34.0-46.0) % Neutrophils # (1.3-7.7) k/uL Sodium (137-145) mmol/L Chloride (98-107) mmol/L BUN (7-17) mg/dL Glucose (74-99) mg/dL POC Glucose (mg/dL) 137 H 171 H 225 H (75-99) mg/dL Hemoglobin A1c (4.0-6.0) % Total Bilirubin (0.2-1.3) mg/dL AST (14-36) U/L Total Protein (6.3-8.2) g/dL Albumin (3.5-5.0) g/dL Crossmatch 02/04/19 02/04/19 Range/Units 07:25 07:25 WBC 11.9 H (3.8-10.6) k/uL RBC 2.72 L (3.80-5.40) m/uL Hgb 8.0 L (11.4-16.0) gm/dL Hct 24.2 L (34.0-46.0) % Neutrophils # 8.7 H (1.3-7.7) k/uL Sodium 129 L (137-145) mmol/L Chloride 96 L (98-107) mmol/L BUN 21 H (7-17) mg/dL Glucose 210 H (74-99) mg/dL POC Glucose (mg/dL) (75-99) mg/dL Hemoglobin A1c (4.0-6.0) % Total Bilirubin 1.6 H (0.2-1.3) mg/dL AST 56 H (14-36) U/L Total Protein 5.3 L (6.3-8.2) g/dL Albumin 2.8 L (3.5-5.0) g/dL Crossmatch Assessment and Plan Assessment: 1. Left hip fracture status post fall. Status post left hip hemiarthroplasty. 2. New-onset A. fib with RVR. Patient does reports she had incident of A. fib proximally 15 years ago at that time patient was not started on medication anticoagulation. Per nursing staff EKG showing A. fib with RVR heart rate in the 120s. Patient is asymptomatic. Patient started on eliquis per cardiology. TSH within normal limits at 2.570. Magnesium 1.7. Eliquis currently on hold due to anemia 3. History of diabetes mellitus type 2. Home long-acting medication has been ordered along with sliding scale coverage. Patient reports she does follow with endocrinology. Hemoglobin A1c 8.5 4. History of atrial fibrillation possibly 15 years ago. Patient reports this was an isolated incident did not require anticoagulation no further episodes. EKG completed in ER showing normal sinus rhythm. Voltage criteria for left v entricular hypertrophy 5. History of hyperlipidemia 6. History of essential hypertension 7. Urinary tract infection. UA showing small amount of leukocyte Estrace. On Rocephin . Urine culture ordered 8. Hyponatremia. Sodium low at 124. Continue normal saline at 75. Sodium improving to 129. Per nephrology services hyponatremia likely from outside SIA 9. Anemia. Iron studies ordered. Stool for occult blood ordered. Hemoglobin decreasing to 6.7 likely due to bruising. GI services were consulted. Patient received 1 unit of PRBCs hemoglobin improving to 8.0. 10. Hypotension. Patient maintained on mididrone per nephrology Thank you for this consultation we will continue to follow patient closely throughout stay I performed an examination of the patient and discussed their management with the Nurse Practitioner. I have reviewed the Nurse Practitioner's notes and agr ee with the documented findings and plan of care
[2019-02-04] MEDS: SODIUM FERRIC GLUCONAT-SUCROSE 125 MG in SODIUM CHLORIDE 0.9% 100 ML IVPB SCH (10:03)
--- NOTE | 2019-02-04 10:25 | P.PN ---
Subjective Patient is seen in follow-up for hyponatremia. Sodium is up to 129 today. She is currently sitting up in chair. Oral intake is gradually improving. No vomiting or diarrhea. Good urine output. Hemoglobin 8.0 today. She received a unit of blood on February 03. No active bleeding. Vital signs are stable. General: The patient appeared well nourished and normally developed. HEENT: Head exam is unremarkable. Neck is without jugular venous distension. LUNGS: Lungs are clear to auscultation and percussion. Breath sounds decreased. HEART: Rate and Rhythm are regular. First and second heart sounds normal. No murmurs, rubs or gallops. ABDOMEN: Abdominal exam reveals normal bowel sounds. Non-tender and non- distended. No evidence of peritonitis. EXTREMITITES: No clubbing, cyanosis, or edema. Objective - Vital Signs Vital signs: Vital Signs Temp 97.8 F 02/04/19 06:50 Pulse 65 02/04/19 06:50 Resp 18 02/04/19 07:54 BP 94/58 02/04/19 06:50 Pulse Ox 97 02/04/19 06:50 Intake & Output 02/03/19 02/04/19 02/04/19 18:59 06:59 18:59 Intake Total 240 410 Output Total 200 Balance 40 410 Intake: Intake, IV Titration 100 Amount Sodium Ferric Gluconat- 100 Sucrose 125 mg In Sodium Chloride 0.9% 100 ml @ 100 mls/hr IVPB DAILY [facility] Rx#:[id number] Oral 240 Blood Product 0 310 Rc As-3 Unit 0 310 [id number] Output: Urine 200 Other: # Voids 3 2 - Labs CBC & Chem 7: 02/04/19 07:25 02/04/19 07:25 Labs: Abnormal Lab Results - Last 24 Hours (Table) 02/03/19 02/03/19 02/03/19 Range/Units 07:00 09:37 11:48 WBC (3.8-10.6) k/uL RBC (3.80-5.40) m/uL Hgb (11.4-16.0) gm/dL Hct (34.0-46.0) % Neutrophils # (1.3-7.7) k/uL Sodium (137-145) mmol/L Chloride (98-107) mmol/L BUN (7-17) mg/dL Glucose (74-99) mg/dL POC Glucose (mg/dL) 283 H (75-99) mg/dL Hemoglobin A1c 8.5 H (4.0-6.0) % Total Bilirubin (0.2-1.3) mg/dL AST (14-36) U/L Total Protein (6.3-8.2) g/dL Albumin (3.5-5.0) g/dL Crossmatch See Detail 02/03/19 02/03/19 02/04/19 Range/Units 17:00 20:26 06:56 WBC (3.8-10.6) k/uL RBC (3.80-5.40) m/uL Hgb (11.4-16.0) gm/dL Hct (34.0-46.0) % Neutrophils # (1.3-7.7) k/uL Sodium (137-145) mmol/L Chloride (98-107) mmol/L BUN (7-17) mg/dL Glucose (74-99) mg/dL POC Glucose (mg/dL) 137 H 171 H 225 H (75-99) mg/dL Hemoglobin A1c (4.0-6.0) % Total Bilirubin (0.2-1.3) mg/dL AST (14-36) U/L Total Protein (6.3-8.2) g/dL Albumin (3.5-5.0) g/dL Crossmatch 02/04/19 02/04/19 Range/Units 07:25 07:25 WBC 11.9 H (3.8-10.6) k/uL RBC 2.72 L (3.80-5.40) m/uL Hgb 8.0 L (11.4-16.0) gm/dL Hct 24.2 L (34.0-46.0) % Neutrophils # 8.7 H (1.3-7.7) k/uL Sodium 129 L (137-145) mmol/L Chloride 96 L (98-107) mmol/L BUN 21 H (7-17) mg/dL Glucose 210 H (74-99) mg/dL POC Glucose (mg/dL) (75-99) mg/dL Hemoglobin A1c (4.0-6.0) % Total Bilirubin 1.6 H (0.2-1.3) mg/dL AST 56 H (14-36) U/L Total Protein 5.3 L (6.3-8.2) g/dL Albumin 2.8 L (3.5-5.0) g/dL Crossmatch Assessment and Plan Plan: Assessment: 1. Hyponatremia secondary to SIADH which can be pain induced. Sodium level 129 today. 2. Acute blood loss anemia status post blood transfusion on February 03. Hemoglobin 8.0 today. Iron deficiency noted. 3. Status post left hip hemiarthroplasty. 4. Hypotension maintained on Midodrine. Cortisol level normal. 5. Insulin-dependent diabetes mellitus. Plan: Maintain IV iron. 1.5 L fluid restriction. Add ensure 3 times daily with meals. Repeat electrolytes in the morning.
[2019-02-04] MEDS: HYDROcodone/APAP 7.5-325MG 1 EACH TAB PO PRN ×2 (10:40→19:22)
--- NOTE | 2019-02-04 10:44 | P.PN ---
Subjective Progress Note Date: 02/04/19 Principal diagnosis: S/P left hip hemiarthroplasty for left hip fracture Patient is seen at bedside this morning. She is postop day #5 from left hip hemiarthroplasty. She has pain at the surgical site as expected but denies any new complaints. Her HgB had dropped and was transfused PRBCs yesterday. Her HgB is 8 today. She denies numbness, tingling or calf pain. Review of systems is negative for fever, chills, chest pain, shortness of breath or other Objective - Vital Signs Vital signs: Vital Signs Temp 97.8 F 02/04/19 06:50 Pulse 65 02/04/19 06:50 Resp 18 02/04/19 07:54 BP 94/58 02/04/19 06:50 Pulse Ox 97 02/04/19 06:50 Intake & Output 02/03/19 02/04/19 02/04/19 18:59 06:59 18:59 Intake Total 240 410 Output Total 200 Balance 40 410 Intake: Intake, IV Titration 100 Amount Sodium Ferric Gluconat- 100 Sucrose 125 mg In Sodium Chloride 0.9% 100 ml @ 100 mls/hr IVPB DAILY [facility] Rx#:[id number] Oral 240 Blood Product 0 310 Rc As-3 Unit 0 310 [id number] Output: Urine 200 Other: # Voids 3 2 - Exam Inspection reveals a benign surgical wound. There is no active bleeding or drainage. There is echymoses around the surgical site as expected given that she was on Eloquis. Neurovascular status is intact throughout the lower extremity with motor and sensation fully intact. Calf is soft and nontender. 2+ dorsalis pedis pulse and less than 2 second cap refill is present. - Labs CBC & Chem 7: 02/04/19 07:25 02/04/19 07:25 Labs: Abnormal Lab Results - Last 24 Hours (Table) 02/03/19 02/03/19 02/03/19 Range/Units 07:00 09:37 11:48 WBC (3.8-10.6) k/uL RBC (3.80-5.40) m/uL Hgb (11.4-16.0) gm/dL Hct (34.0-46.0) % Neutrophils # (1.3-7.7) k/uL Sodium (137-145) mmol/L Chloride (98-107) mmol/L BUN (7-17) mg/dL Glucose (74-99) mg/dL POC Glucose (mg/dL) 283 H (75-99) mg/dL Hemoglobin A1c 8.5 H (4.0-6.0) % Total Bilirubin (0.2-1.3) mg/dL AST (14-36) U/L Total Protein (6.3-8.2) g/dL Albumin (3.5-5.0) g/dL Crossmatch See Detail 02/03/19 02/03/19 02/04/19 Range/Units 17:00 20:26 06:56 WBC (3.8-10.6) k/uL RBC (3.80-5.40) m/uL Hgb (11.4-16.0) gm/dL Hct (34.0-46.0) % Neutrophils # (1.3-7.7) k/uL Sodium (137-145) mmol/L Chloride (98-107) mmol/L BUN (7-17) mg/dL Glucose (74-99) mg/dL POC Glucose (mg/dL) 137 H 171 H 225 H (75-99) mg/dL Hemoglobin A1c (4.0-6.0) % Total Bilirubin (0.2-1.3) mg/dL AST (14-36) U/L Total Protein (6.3-8.2) g/dL Albumin (3.5-5.0) g/dL Crossmatch 02/04/19 02/04/19 Range/Units 07:25 07:25 WBC 11.9 H (3.8-10.6) k/uL RBC 2.72 L (3.80-5.40) m/uL Hgb 8.0 L (11.4-16.0) gm/dL Hct 24.2 L (34.0-46.0) % Neutrophils # 8.7 H (1.3-7.7) k/uL Sodium 129 L (137-145) mmol/L Chloride 96 L (98-107) mmol/L BUN 21 H (7-17) mg/dL Glucose 210 H (74-99) mg/dL POC Glucose (mg/dL) (75-99) mg/dL Hemoglobin A1c (4.0-6.0) % Total Bilirubin 1.6 H (0.2-1.3) mg/dL AST 56 H (14-36) U/L Total Protein 5.3 L (6.3-8.2) g/dL Albumin 2.8 L (3.5-5.0) g/dL Crossmatch Assessment and Plan (1) Hip fracture Narrative/Plan: She will continue with routine postop orthopedic protocol including pain management, wound care, PT, DVT prophylaxis and medical management. HgB is stable. Wound is benign. I have requested she wear thigh high TONA hose. Expect that she will transfer to [facility] tomorrow if ok with IM and cardiology. Current Visit: Yes Status: Acute Code(s): S72.009A - FRACTURE OF UNSP PART OF NECK OF UNSP FEMUR, INIT SNOMED Code(s): 240916082 Time with Patient: Less than 30
[2019-02-04 11:01] VITALS: BMI 25.0
[2019-02-04 11:46] LABS: Glucose,Whole Blood 172 mg/dL (75-99)
[2019-02-04] MEDS: SENNOSIDES-DOCUSATE SODIUM 1 EACH TAB PO SCH ×3 (12:48→22:07)
[2019-02-04] MEDS: MULTIVITAMINS, THERA 1 EACH TAB PO SCH (14:12)
[2019-02-04 17:10] LABS: Glucose,Whole Blood 171 mg/dL (75-99)
[2019-02-04 20:39] LABS: Glucose,Whole Blood 312 mg/dL (75-99)
[2019-02-04] MEDS: INSULIN DETEMIR (LEVEMIR) 100 UNIT/ML SYR SQ SCH (21:10)
[2019-02-04] MEDS: CHOLECALCIFEROL 1,000 UNIT TAB PO SCH (22:07)
[2019-02-04] MEDS: ASCORBIC ACID 500 MG TAB PO SCH (22:07)
[2019-02-04] MEDS: ATORVASTATIN 10 MG TAB PO SCH (22:07)
[2019-02-05] MEDS: HYDROcodone/APAP 7.5-325MG 1 EACH TAB PO PRN ×3 (02:04→17:40)
[2019-02-05 07:54] LABS: Glucose,Whole Blood 103 mg/dL (75-99)
[2019-02-05 08:28] LABS: Basophils # (A) 0.1 k/uL (0-0.2); Basophils % (A) 1 %; Eosinophils # (A) 0.6 k/uL (0-0.7); Eosinophils % (A) 4 %; HCT 25.2 % (34.0-46.0); HGB 8.3 gm/dL (11.4-16.0); Hypochromasia Slight; Lymphocytes % (A) 14 %; MCH 29.6 pg (25.0-35.0); MCHC 33.1 g/dL (31.0-37.0); MCV 89.3 fL (80.0-100.0); Mean Platelet Volume 7.6; Monocytes # (A) 1.1 k/uL (0-1.0); Monocytes % (A) 8 %; Neutrophils # (A) 10.2 k/uL (1.3-7.7); Neutrophils % (A) 72 %; Platelet Count 355 k/uL (150-450); RBC 2.82 m/uL (3.80-5.40); RDW 15.9 % (11.5-15.5); WBC 14.2 k/uL (3.8-10.6)
[2019-02-05] MEDS: INSULIN ASPART (NovoLOG) 100 UNIT/ML VIAL SQ SCH ×6 (08:39→17:42)
[2019-02-05 08:40] LABS: ALT 41 U/L (9-52); AST 44 U/L (14-36); African American GFR (CKD) >90 (>60 ml/min/1.73 sqM); Albumin 2.9 g/dL (3.5-5.0); Alkaline Phosphatase 82 U/L (38-126); Anion Gap 7 mmol/L; Blood Urea Nitrogen 16 mg/dL (7-17); Calcium 8.8 mg/dL (8.4-10.2); Carbon Dioxide 28 mmol/L (22-30); Chloride 96 mmol/L (98-107); Glucose 105 mg/dL (74-99); Potassium 5.1 mmol/L (3.5-5.1); Sodium 131 mmol/L (137-145); Total Bilirubin 1.4 mg/dL (0.2-1.3); Total Protein 5.5 g/dL (6.3-8.2)
[2019-02-05 08:48] VITALS: RESP 18
[2019-02-05] MEDS: MIDODRINE 5 MG TAB PO SCH ×3 (08:50→17:41)
[2019-02-05] MEDS: SENNOSIDES-DOCUSATE SODIUM 1 EACH TAB PO SCH (08:50)
[2019-02-05] MEDS: METOPROLOL TARTRATE 25 MG TAB PO SCH (08:50)
--- NOTE | 2019-02-05 09:21 | P.DS ---
Providers Date of admission: 01/29/19 16:22 Expected date of discharge: 02/05/19 Attending physician: Phil Drummond Consults: 01/29/19 16:22 Consult Physician Urgent Consulting Provider: Trino Hart Consult Reason/Comments: Medical clearance for surgery Do you want consulting provider notified?: Yes 01/31/19 10:06 Consult Physician Urgent Consulting Provider: Perri Lopez Consult Reason/Comments: new Afib with RVR Do you want consulting provider notified?: Yes 02/01/19 09:24 Consult Physician Routine Consulting Provider: Sheila Hopson Consult Reason/Comments: hyponatremia Do you want consulting provider notified?: Yes 02/03/19 11:03 Consult Physician Routine Consulting Provider: Sly Avila Consult Reason/Comments: anemia Do you want consulting provider notified?: Yes Primary care physician: Vani Campos - Discharge Diagnosis(es) (1) Hip fracture Patient was admitted to the OR on 01/30/2019 to undergo a left hip gypsy arthroplasty. She had suffered a left hip fracture due to a fall and desired to proceed with elective surgery after given informed consent. She underwent the above procedure which she tolerated well without complication. Postoperative hospital course has remained without complication. On day of discharge she is afebrile, vital signs stable, labs within acceptable ranges, tolerating by mouth meds and diet, voiding without difficulty, positive flatus, denies abdominal pain or calf pain, pain is controlled on oral pain medication and has no new complaints. Wound is benign, neurovascular status is intact, calf is soft and nontender, abdomen soft and nontender. Review of systems is negative for numbness, tingling, fever, chills, chest pain, shortness breath, nausea, vomiting, dizziness, headaches, slurred speech or other Current Visit: Yes Status: Acute Priority: Medium Procedures: Left Hip Hemiarthroplasty Patient Condition at Discharge: Good Plan - Discharge Summary New Discharge Prescriptions: New Docusate [Colace] 100 mg PO BID #60 capsule HYDROcodone/APAP 7.5-325MG [[place] 7.5-325] 1 - 2 each PO Q6HR PRN #56 tab PRN Reason: Pain No Action INSULIN ASPART (NovoLOG) [NovoLOG (formulary)] 7 unit SQ AC-LUNCH INSULIN ASPART (NovoLOG) [NovoLOG (formulary)] See Protocol SQ AC-TID PRN PRN Reason: HIGH BLOOD SUGAR INSULIN ASPART (NovoLOG) [NovoLOG (formulary)] 6 unit SQ AC-BID Insulin Glargine [Lantus] 15 unit SQ HS Cholecalciferol [Vitamin D3 (25 Mcg = 1000 Iu)] 5,000 unit PO HS Ascorbic Acid [Vitamin C] 1,000 mg PO HS Simvastatin [Zocor] 20 mg PO HS Aspirin EC [Ecotrin Low Dose] 81 mg PO HS Metoprolol Tartrate [Lopressor] 12.5 mg PO HS Discharge Medication List Ascorbic Acid [Vitamin C] 1,000 mg PO HS 01/29/19 [History] Aspirin EC [Ecotrin Low Dose] 81 mg PO HS 01/29/19 [History] Cholecalciferol [Vitamin D3 (25 Mcg = 1000 Iu)] 5,000 unit PO HS 01/29/19 [History] INSULIN ASPART (NovoLOG) [NovoLOG (formulary)] 6 unit SQ AC-BID 01/29/19 [History] INSULIN ASPART (NovoLOG) [NovoLOG (formulary)] 7 unit SQ AC-LUNCH 01/29/19 [History] INSULIN ASPART (NovoLOG) [NovoLOG (formulary)] See Protocol SQ AC-TID PRN 01/29/19 [History] Insulin Glargine [Lantus] 15 unit SQ HS 01/29/19 [History] Metoprolol Tartrate [Lopressor] 12.5 mg PO HS 01/29/19 [History] Simvastatin [Zocor] 20 mg PO HS 01/29/19 [History] Docusate [Colace] 100 mg PO BID #60 capsule 02/01/19 [Rx] HYDROcodone/APAP 7.5-325MG [[place] 7.5-325] 1 - 2 each PO Q6HR PRN #56 tab 02/01/19 [Rx] Follow up Appointment(s)/Referral(s): Sheila Hopson MD [STAFF PHYSICIAN] - 2 Weeks Nonstaff,Physician [REFERRING] - 1-2 days Phil Drummond MD [STAFF PHYSICIAN] - 02/12/19 1:30 pm Activity/Diet/Wound Care/Special Instructions: Weight bear as tolerated take meds as directed F/U with Dr. rDummond in office Keep wound clean and dry may shower in 3 days if no bleeding Draw BMP every three days per Dr John Discharge Disposition: TRANSFER TO SNF/ECF
--- NOTE | 2019-02-05 10:01 | P.PN ---
Subjective Progress Note Date: 02/05/19 Principal diagnosis: Anemia Hemoglobin 8.3. No GI bleeding. Objective - Vital Signs Vital signs: Vital Signs Temp 98.4 F 02/05/19 07:50 Pulse 77 02/05/19 07:50 Resp 18 02/05/19 07:50 BP 109/68 02/05/19 07:50 Pulse Ox 95 02/05/19 07:50 Intake & Output 02/04/19 02/05/19 02/05/19 18:59 06:59 18:59 Intake Total 540 Output Total 650 600 Balance -110 -600 Weight 72.575 kg Intake: Oral 540 Output: Urine 650 600 Other: Voiding Method Toilet # Voids 1 - Exam General appearance: The patient is alert, oriented, in no acute distress. HET: Head is normocephalic and atraumatic. Pupils are equal and reactive. Oropharynx is clear without lesions. Neck: Supple without lymphadenopathy. Trachea midline. Heart: S1 S2. Regular rate and rhythm. Lungs: No crackles or wheezes are heard. Abdomen: Soft, nontender, nondistended with bowel sounds. No peritoneal signs. No palpable organomegaly or masses. Extremities: Left hip with ecchymosis +1 edema dressing intact dry no active bleeding. Radial and pedal pulses are 2/4 bilaterally. Neurological: No focal deficits. Strength and sensation are grossly intact. - Labs CBC & Chem 7: 02/05/19 07:34 02/05/19 07:34 Labs: Abnormal Lab Results - Last 24 Hours (Table) 02/04/19 02/04/19 02/04/19 Range/Units 11:31 17:09 20:37 WBC (3.8-10.6) k/uL RBC (3.80-5.40) m/uL Hgb (11.4-16.0) gm/dL Hct (34.0-46.0) % RDW (11.5-15.5) % Neutrophils # (1.3-7.7) k/uL Monocytes # (0-1.0) k/uL Sodium (137-145) mmol/L Chloride (98-107) mmol/L Glucose (74-99) mg/dL POC Glucose (mg/dL) 172 H 171 H 312 H (75-99) mg/dL Total Bilirubin (0.2-1.3) mg/dL AST (14-36) U/L Total Protein (6.3-8.2) g/dL Albumin (3.5-5.0) g/dL 02/05/19 02/05/19 02/05/19 Range/Units 07:34 07:34 07:43 WBC 14.2 H (3.8-10.6) k/uL RBC 2.82 L (3.80-5.40) m/uL Hgb 8.3 L (11.4-16.0) gm/dL Hct 25.2 L (34.0-46.0) % RDW 15.9 H (11.5-15.5) % Neutrophils # 10.2 H (1.3-7.7) k/uL Monocytes # 1.1 H (0-1.0) k/uL Sodium 131 L (137-145) mmol/L Chloride 96 L (98-107) mmol/L Glucose 105 H (74-99) mg/dL POC Glucose (mg/dL) 103 H (75-99) mg/dL Total Bilirubin 1.4 H (0.2-1.3) mg/dL AST 44 H (14-36) U/L Total Protein 5.5 L (6.3-8.2) g/dL Albumin 2.9 L (3.5-5.0) g/dL Assessment and Plan (1) Normocytic anemia Narrative/Plan: 83-year-old female status post left hip hemiarthroplasty secondary to fall and fracture with development of ecchymosis to surgical site with a a drop in hemoglobin without overt GI bleeding. Suspect hemoglobin is a component of acute blood loss anemia secondary to subcutaneous tissue bleeding. No clinical evidence to suggest at this time an active GI bleed. Current Visit: Yes Status: Acute Code(s): D64.9 - ANEMIA, UNSPECIFIED SNOMED Code(s): 923808840 (2) History of left hip hemiarthroplasty Current Visit: Yes Status: Acute Code(s): Z96.642 - PRESENCE OF LEFT ARTIFICIAL HIP JOINT SNOMED Code(s): 465242609 (3) Fall Current Visit: Yes Status: Acute Code(s): W19.XXXA - UNSPECIFIED FALL, INITIAL ENCOUNTER SNOMED Code(s): 6197297 Plan: 1. CBC improved today. No evidence of active GI bleeding. Endoscopic exams not indicated at this time. Stool softeners and milk of magnesia for constipation. We'll follow as needed. Assessment and plan a care discussed with Dr. Avila
--- NOTE | 2019-02-05 11:07 | P.PN ---
Subjective Progress Note Date: 02/05/19 This is an 83-year-old female patient of Dr. Samuel. Patient presented to ER after sustaining a fall. Patient reports she was playing bridge when she tripped over some increased pain and landed on her left hip. Patient denies hitting her head or loss of consciousness. Patient denies any dizziness prior to episode. Hip x-ray completed showing acute subcapital fracture through left proximal humerus. Patient reports that she had episode of A. fib approximately 15 years ago. Patient reports that she was not placed on anticoagulation and never had an occurrence again. Additional history includes diabetes mellitus in which he follows with endocrinology, hyperlipidemia and hypertension. Patient denies any history of cardiac conditions. Patient denies history of CHF,COPD or asthma. Patient denies smoking. At this time patient denies any chest pain or shortness of breath. Patient denies nausea vomiting or diarrhea. Patient denies any urinary burning or frequency. Patient low grade temp of 99.9 throughout night this is likely reactive. Chest x-ray completed showing chronic parenchymal changes and cardiomegaly without acute pulmonary process. EKG completed showing some normal sinus rhythm voltage criteria for left ventricular hypertrophy. Urinary analysis has been ordered. orthopedic services have been consulted planning left hip gypys arthroplasty today. On 01/31/2019 patient is alert and oriented 3. Patient reports she feels well after surgery. Upon auscultation patient was found to have elevated heart rate possibly irregular. EKG has been ordered orders for telemetry placed. EKG that was completed yesterday showed normal sinus rhythm. Patient denies any feeling of palpitations or heart racing. Patient denies shortness of breath. Patient's sodium also at 124 continue normal saline at 75. At this time patient denies nausea vomiting or diarrhea. Patient denies chest pain or shortness of breath. Patient denies any urinary burning or frequency. On 02/01/2019 patient alert and oriented 3. Patient was found to be in A. fib with RVR yesterday. Cardiology consulted patient started on eliquis. Patient's sodium remains low despite fluid at 124. Patient denies excessive water intake. Will consult nephrology services at this time. Patient denies any chest pain or shortness of breath. Patient denies nausea vomiting or diarrhea. Patient denies any urinary burning or frequency. On 02/02/2019 patient was seen and examined on the medical floor she is alert and oriented 3 in no apparent distress she was able to stand and walk a few steps with physical therapy there is no fever or chills no headache or dizziness no chest pain no shortness of breath no cough no nausea or vomiting no abdominal pain no diarrhea and no urinary symptoms patient was seen by nephrology she is maintained on fluid restriction she has hyponatremia due to SIADH sodium today is up to 127 On 02/03/2019 patient is feeling better, her pain is better controlled, she is sitting up in a chair, sodium is still low down to 126 this morning hemoglobin is down to 6.7, patient examined, she has a large bruise around the surgical area, she denies any blood in the urine or in the stools. Clinically patient denies any symptoms other than pain in her lower extremity, there is no fever or chills no headache or dizziness no chest pain no shortness of breath no cough no nausea or vomiting no abdominal pain no diarrhea and no urinary symptoms. At this point will hold Eliquis, give 1 unit of red blood cell transfusion, check stool Hemoccult, consult gastroenterology to assess for need for GI workup for anemia On 02/04/2019 patient alert and oriented 3. Sodium is improving to 129. Patient is currently resting comfortably in chair. Patient reports that she st ill having some discomfort to left hip site. Hemoglobin improving to 8.0. Patient was evaluated by GI services no plans for scopes at this time. Patient denies any chest pain or shortness of breath. Patient denies any urinary burning or frequency. Patient denies nausea vomiting or diarrhea. On 02/05/2019 patient's alert and oriented 3. Sodium improving to 131. Patient is resting comfortably in chair. Hemoglobin improving to 8.3. No further workup per GI services likely drop in hemoglobin due to bruising incision site. Due to significant bruising and patient requiring blood transfu koko we'll hold anticoagulation at this time. Patient will be followed at [facility] by will reassess hemoglobin in 1 week and consider adding eliquis 2.5 twice a day for anticoagulation for atrial fibrillation. Patient also having increasing white blood cell count. Patient is on Rocephin for urinary tract infection. Patient denies any specific complaints. Will order a chest x-ray prior to discharge. At this time patient denies chest pain or shortness of breath. Patient denies nausea vomiting or diarrhea. Patient reports she had large nonbloody p.m. this a.m. patient denies any urinary burning or frequency Objective - Vital Signs Vital signs: Vital Signs Temp 98.4 F 02/05/19 07:50 Pulse 77 02/05/19 08:10 Resp 18 02/05/19 08:10 BP 109/68 02/05/19 07:50 Pulse Ox 95 02/05/19 07:50 Intake & Output 02/04/19 02/05/19 02/05/19 18:59 06:59 18:59 Intake Total 540 Output Total 650 600 Balance -110 -600 Weight 72.575 kg Intake: Oral 540 Output: Urine 650 600 Other: Voiding Method Toilet Toilet # Voids 1 - Exam Head normocephalic Neck supple Lungs clear to auscultation bilaterally no wheezing or crackles Heart Irregular elevated HR Abdomen is soft nontender nondistended positive bowel sounds no hepatosplenomegaly Extremities no edema. Left hip dressing clean dry and intact. Significant bru ising to left upper extremity to back and abdomen from incision site Neuro alert and orientated to 3 - Labs CBC & Chem 7: 02/05/19 07:34 02/05/19 07:34 Labs: Abnormal Lab Results - Last 24 Hours (Table) 02/04/19 02/04/19 02/04/19 Range/Units 11:31 17:09 20:37 WBC (3.8-10.6) k/uL RBC (3.80-5.40) m/uL Hgb (11.4-16.0) gm/dL Hct (34.0-46.0) % RDW (11.5-15.5) % Neutrophils # (1.3-7.7) k/uL Monocytes # (0-1.0) k/uL Sodium (137-145) mmol/L Chloride (98-107) mmol/L Glucose (74-99) mg/dL POC Glucose (mg/dL) 172 H 171 H 312 H (75-99) mg/dL Total Bilirubin (0.2-1.3) mg/dL AST (14-36) U/L Total Protein (6.3-8.2) g/dL Albumin (3.5-5.0) g/dL 02/05/19 02/05/19 02/05/19 Range/Units 07:34 07:34 07:43 WBC 14.2 H (3.8-10.6) k/uL RBC 2.82 L (3.80-5.40) m/uL Hgb 8.3 L (11.4-16.0) gm/dL Hct 25.2 L (34.0-46.0) % RDW 15.9 H (11.5-15.5) % Neutrophils # 10.2 H (1.3-7.7) k/uL Monocytes # 1.1 H (0-1.0) k/uL Sodium 131 L (137-145) mmol/L Chloride 96 L (98-107) mmol/L Glucose 105 H (74-99) mg/dL POC Glucose (mg/dL) 103 H (75-99) mg/dL Total Bilirubin 1.4 H (0.2-1.3) mg/dL AST 44 H (14-36) U/L Total Protein 5.5 L (6.3-8.2) g/dL Albumin 2.9 L (3.5-5.0) g/dL Assessment and Plan Assessment: 1. Left hip fracture status post fall. Status post left hip hemiarthroplasty. 2. New-onset A. fib with RVR. Patient does reports she had incident of A. fib proximally 15 years ago at that time patient was not started on medication anticoagulation. Per nursing staff EKG showing A. fib with RVR heart rate in the 120s. Patient is asymptomatic. Patient started on eliquis per cardiology. TSH within normal limits at 2.570. Magnesium 1.7. Eliquis currently on hold due to anemia acute blood loss anemia secondary to bruising incisional site. Patient will be reassessed in one week to address anticoagulation will consider adding 2.5 mg twice a day of eliquis at that time 3. History of diabetes mellitus type 2. Home long-acting medication has been ordered along with sliding scale coverage. Patient reports she does follow with endocrinology. Hemoglobin A1c 8.5 4. History of atrial fibrillation possibly 15 years ago. Patient reports this was an isolated incident did not require anticoagulation no further episodes. EKG completed in ER showing normal sinus rhythm. Voltage criteria for left ventricular hypertrophy 5. History of hyperlipidemia 6. History of essential hypertension 7. Urinary tract infection. UA showing small amount of leukocyte Estrace. On Rocephin . Urine culture showing no growth after 18 hours.. 8. Hyponatremia. Sodium low at 124. Continue normal saline at 75. Sodium improving to 129. Per nephrology services hyponatremia likely from outside SIA. Sodium improving to 131 9. Acute blood loss anemia secondary from surgery. Hemoglobin decreasing to 6.7 requiring 1 unit PRBCs. GI services were consulted. Per GI services no evidence of active GI bleed. Endoscopic exams not indicated at this time. Anemia likely due to extensive bruising at incisional site. Patient will be DC'd on ferrous sulfate. Current hemoglobin 8.3. Due to extensive bruising and patient requiring PRBC transfusion will continue to hold anticoagulation and monitor in one week and consider restarting eliquis for anticoagulation due to A. fib. 10. Hypotension. Patient maintained on mididrone per nephrology. Blood Pressure has improved 11. Leukocytosis. White blood cell elevated at 14.2. Patient will be DC'd on Ceftin for urinary tract infection. Chest x-ray to be completed prior to discharge rule out pneumonia. no acute symptoms at this time. Thank you for this consultation we will continue to follow patient closely th roughout stay Patient planning to be DC'd to [facility] for rehab. Patient to be followed by Dr. Hart I performed an examination of the patient and discussed their management with the Nurse Practitioner. I have reviewed the Nurse Practitioner's notes and agree with the documented findings and plan of care
[2019-02-05 12:16] LABS: Glucose,Whole Blood 193 mg/dL (75-99)
[2019-02-05] MEDS: MULTIVITAMINS, THERA 1 EACH TAB PO SCH (12:38)
--- NOTE | 2019-02-05 13:45 | XR ---
EXAMINATION TYPE: XR chest 2V DATE OF EXAM: 02/05/2019 COMPARISON: Prior chest x-ray 01/29/2019 HISTORY: Extended-care facility placement TECHNIQUE: Frontal and lateral views of the chest are obtained. FINDINGS: An abnormal area of increased attenuation is present over the lower thoracic spine seen on the lateral exam. Lung lines are prominent which may be indicative of underlying COPD. There is no pl eural effusion or pneumothorax seen. The cardiac silhouette size is within normal limits. The aorta is tortuous and dense, there may be spinal curvature. The osseous structures are intact. IMPRESSION: Abnormal density superimposed over the spine on the lateral exam is indeterminate. Consid er chest CT for better evaluation.
[2019-02-05] MEDS ORDERED: RX INFO: IV CONTRAST WAS GIVEN 1 EACH MISC MISCELLANE PRN (14:31)
--- NOTE | 2019-02-05 14:46 | P.PN ---
Subjective Patient is seen in follow-up for hyponatremia. Sodium is up to 131 today. Oral intake is gradually improving. No vomiting or diarrhea. Good urine output. Hemoglobin 8.3 today. She received a unit of blood on February 03. No active bleeding. Vital signs are stable. General: The patient appeared well nourished and normally developed. HEENT: Head exam is unremarkable. Neck is without jugular venous distension. LUNGS: Lungs are clear to auscultation and percussion. Breath sounds decreased. HEART: Rate and Rhythm are regular. First and second heart sounds normal. No murmurs, rubs or gallops. ABDOMEN: Abdominal exam reveals normal bowel sounds. Non-tender and non- distended. No evidence of peritonitis. EXTREMITITES: Trace edema. Objective - Vital Signs Vital signs: Vital Signs Temp 98.4 F 02/05/19 07:50 Pulse 77 02/05/19 08:10 Resp 18 02/05/19 08:10 BP 109/68 02/05/19 07:50 Pulse Ox 95 02/05/19 07:50 Intake & Output 02/04/19 02/05/19 02/05/19 18:59 06:59 18:59 Intake Total 540 240 Output Total 650 600 Balance -110 -360 Weight 72.575 kg Intake: Oral 540 240 Output: Urine 650 600 Other: Voiding Method Toilet Toilet # Voids 1 - Labs CBC & Chem 7: 02/05/19 07:34 02/05/19 07:34 Labs: Abnormal Lab Results - Last 24 Hours (Table) 02/04/19 02/04/19 02/05/19 Range/Units 17:09 20:37 07:34 WBC 14.2 H (3.8-10.6) k/uL RBC 2.82 L (3.80-5.40) m/uL Hgb 8.3 L (11.4-16.0) gm/dL Hct 25.2 L (34.0-46.0) % RDW 15.9 H (11.5-15.5) % Neutrophils # 10.2 H (1.3-7.7) k/uL Monocytes # 1.1 H (0-1.0) k/uL Sodium (137-145) mmol/L Chloride (98-107) mmol/L Glucose (74-99) mg/dL POC Glucose (mg/dL) 171 H 312 H (75-99) mg/dL Total Bilirubin (0.2-1.3) mg/dL AST (14-36) U/L Total Protein (6.3-8.2) g/dL Albumin (3.5-5.0) g/dL 02/05/19 02/05/19 02/05/19 Range/Units 07:34 07:43 12:05 WBC (3.8-10.6) k/uL RBC (3.80-5.40) m/uL Hgb (11.4-16.0) gm/dL Hct (34.0-46.0) % RDW (11.5-15.5) % Neutrophils # (1.3-7.7) k/uL Monocytes # (0-1.0) k/uL Sodium 131 L (137-145) mmol/L Chloride 96 L (98-107) mmol/L Glucose 105 H (74-99) mg/dL POC Glucose (mg/dL) 103 H 193 H (75-99) mg/dL Total Bilirubin 1.4 H (0.2-1.3) mg/dL AST 44 H (14-36) U/L Total Protein 5.5 L (6.3-8.2) g/dL Albumin 2.9 L (3.5-5.0) g/dL Assessment and Plan Plan: Assessment: 1. Hyponatremia secondary to SIADH which can be pain induced. Sodium level 131 today. 2. Acute blood loss anemia status post blood transfusion on February 03. Hemoglobin 8.3 today. Iron deficiency noted. Status post IV iron. 3. Status post left hip hemiarthroplasty. 4. Hypotension maintained on Midodrine. Cortisol level normal. 5. Insulin-dependent diabetes mellitus. Plan: Stable to be discharged from nephrology standpoint. Patient will be going to ECF. Maintain 50-60 ounces fluid restriction per day. Maintain ensure 3 times daily. Repeat BMP in 2-3 days. Follow up outpatient in 1-2 weeks.
[2019-02-05 15:51] VITALS: BP 106/53; TEMP 97.3
[2019-02-05 16:48] LABS: Glucose,Whole Blood 183 mg/dL (75-99)
--- NOTE | 2019-02-05 16:55 | CT ---
EXAMINATION TYPE: CT chest w con DATE OF EXAM: 02/05/2019 COMPARISON: None HISTORY: Abnormal CXR CT DLP: 297.6 mGycm Automated exposure control for dose reduction was used. CONTRAST: CT scan of the chest is performed with IV Contrast, patient injected with 100 mL of Isovue 300. FINDINGS: Multiple axial sections were obtained from the thoracic inlet to the diaphragm with intravenous contr ast. Thoracic aorta is atheromatous. The ascending aorta measures 3.7 cm. There is no dissection. There is no mediastinal adenopathy. There are no hilar masses. Heart size is top normal. There is no pericard ial effusion. There are small hiatal hernia. There are scattered cysts in the liver that measure up t o 1.7 cm. The lungs are clear of consolidation. There is no pleural effusion. There is minimal pleural thickeni ng at the left posterior lung base. There is thoracolumbar levoscoliosis. There is mild thoracic dext roscoliosis. I see no focal bone destruction. There is no compression fracture. IMPRESSION: Minimal pleural scarring at the left lung base. Atheromatous aorta. No suspicious thorac ic mass.
[2019-02-05 19:46] VITALS: PULSE 73
== END 2019-02-05 19:07 | DRG 470 ==
LOC: EC 14:19 → 4SSUR 16:22
PROVIDERS: ADMIT Orthopaedic Surgery Sports Medicine; ATTEND Orthopaedic Surgery Sports Medicine
PROC: 0SRS01A Replacement of Left Hip Joint, Femoral Surface with Metal Synthetic Substitute, Uncemented, Open Approach (ICD-10-PCS; principal; 2019-01-30 07:30)
PROC: 30233N1 Transfusion of Nonautologous Red Blood Cells into Peripheral Vein, Percutaneous Approach (ICD-10-PCS; 2019-02-03)
DX: S72.012A Unspecified intracapsular fracture of left femur, initial encounter for closed fracture (principal); N39.0 Urinary tract infection, site not specified; T83.511A Infection and inflammatory reaction due to indwelling urethral catheter, initial encounter; E22.2 Syndrome of inappropriate secretion of antidiuretic hormone; D62 Acute posthemorrhagic anemia; I95.89 Other hypotension; E87.5 Hyperkalemia; E87.70 Fluid overload, unspecified; E86.9 Volume depletion, unspecified; I48.0 Paroxysmal atrial fibrillation; E11.9 Type 2 diabetes mellitus without complications; D50.9 Iron deficiency anemia, unspecified; I11.9 Hypertensive heart disease without heart failure; E78.5 Hyperlipidemia, unspecified; M19.90 Unspecified osteoarthritis, unspecified site; Z79.4 Long term (current) use of insulin; Z79.82 Long term (current) use of aspirin; Z79.899 Other long term (current) drug therapy; Z87.81 Personal history of (healed) traumatic fracture; Z98.890 Other specified postprocedural states; W01.0XXA Fall on same level from slipping, tripping and stumbling without subsequent striking against object, initial encounter; Y92.29 Other specified public building as the place of occurrence of the external cause; Z82.49 Family history of ischemic heart disease and other diseases of the circulatory system; Z83.6 Family history of other diseases of the respiratory system; Y84.6 Urinary catheterization as the cause of abnormal reaction of the patient, or of later complication, without mention of misadventure at the time of the procedure; Y92.230 Patient room in hospital as the place of occurrence of the external cause
CPT/HCPCS: 36415; 71045; 71046; 71260; 73501; 73502; 80048; 80053; 81001; 82533; 82728; 83036; 83540; 83550; 83735; 83935; 84295; 84300; 84443; 84550; 85025; 85610; 85730; 86850; 86900; 86901; 86920; 87086; 88305; 88311; 93005; 93306; 96360; 99285

== ENCOUNTER → 2019-03-06 | Outpatient (CLI) | payer MEDICARE, BC ==
[2019-03-06 15:55] LABS: HGB 11.5 gm/dL (11.4-16.0); Hypochromasia Slight; MCH 29.4 pg (25.0-35.0); MCHC 31.9 g/dL (31.0-37.0); MCV 92.2 fL (80.0-100.0); Platelet Count 204 k/uL (150-450); RBC 3.91 m/uL (3.80-5.40); RDW 15.8 % (11.5-15.5); WBC 5.8 k/uL (3.8-10.6)
[2019-03-07 00:15] LABS: African American GFR (CKD) 69.5 (60.0-200.0); Anion Gap 11.2 mmol/L (4.00-12.00); BUN/Creat Ratio 23.33 Ratio (12.00-20.00); Calcium 9.7 mg/dL (8.7-10.3); Carbon Dioxide 23.8 mmol/L (21.6-31.8); Potassium 4.2 mmol/L (3.5-5.5)
== END | disposition home or self-care (01) ==
LOC: LABWHC1 15:26
PROVIDERS: ATTEND Internal Medicine Interventional Cardiology
DX: I48.91 Unspecified atrial fibrillation (principal); D64.9 Anemia, unspecified
CPT/HCPCS: 36415; 80048; 85027

== ENCOUNTER 2023-03-03 06:22 | Inpatient (IN) | payer MEDICARE, BC | END 2023-03-03 06:26 | disposition home or self-care (01) | DRG 951 | LOC: 4FBP 06:22 | PROVIDERS: ADMIT Obstetrics & Gynecology; ATTEND Obstetrics & Gynecology | DX: Z53.8 Procedure and treatment not carried out for other reasons (principal) ==

== ENCOUNTER → 2023-12-14 | Outpatient (CLI) | payer MEDICARE, BC ==
[2023-12-14 16:23] LABS: Basophils # (A) 0.06 X 10*3/uL (0.00-0.10); Basophils % (A) 1.1 %; Eosinophils # (A) 0.25 X 10*3/uL (0.04-0.35); Eosinophils % (A) 4.4 %; HCT 41.6 % (37.2-46.3); HGB 13.6 g/dL (12.0-15.0); Lymphocytes # (A) 1.09 X 10*3/uL (0.90-5.00); Lymphocytes % (A) 19.1 %; MCH 29.4 pg (27.0-32.0); MCHC 32.7 g/dL (32.0-37.0); MCV 89.8 FL (80.0-97.0); Mean Platelet Volume 11.1 FL (9.5-12.2); Monocytes # (A) 0.55 X 10*3/uL (0.20-1.00); Monocytes % (A) 9.6 %; NRBC Per 100 WBC 0 X 10*3/uL (0.00-0.01); Neutrophils # (A) 3.74 X 10*3/uL (1.80-7.70); Neutrophils % (A) 65.6 %; Platelet Count 255 X 10*3/uL (140-440); RBC 4.63 X 10*6/uL (4.10-5.20); RDW 12.6 % (11.5-14.5)
[2023-12-14 16:55] LABS: Erythrocyte Sedimentation Rate 38 mm/Hr (0-30)
== END | disposition home or self-care (01) ==
LOC: LABWHC1 11:52
PROVIDERS: ATTEND Orthopaedic Surgery Sports Medicine
DX: M16.12 Unilateral primary osteoarthritis, left hip (principal); T84.091A Other mechanical complication of internal left hip prosthesis, initial encounter
CPT/HCPCS: 36415; 85025; 85379; 85652; 86140

== ENCOUNTER → 2023-12-18 | Outpatient (CLI) | payer MEDICARE, BC ==
--- NOTE | 2023-12-21 13:04 | CT ---
EXAMINATION TYPE: CT hip LT wo con DATE OF EXAM: 12/18/2023 COMPARISON: None HISTORY: Left hip pain, hx of replacement. CT DLP: 436.10 mGycm Automated exposure control for dose reduction was used. Contrast: None Technique: Axial images 3 mm thick sections. Reconstructed images in the coronal and sagittal the. FINDINGS: There is a left hip prosthesis. No acute fractures are identified. Beam hardening artifact is present . No obvious loosening is evident. IMPRESSION: 1. NO ACUTE OSSEOUS ABNORMALITY. LEFT HIP PROSTHESIS REMAINS IN POSITION.
== END | disposition home or self-care (01) ==
LOC: RADCTMAIN 13:04
PROVIDERS: ATTEND Orthopaedic Surgery Sports Medicine
DX: T84.091A Other mechanical complication of internal left hip prosthesis, initial encounter (principal); M16.12 Unilateral primary osteoarthritis, left hip; Z96.642 Presence of left artificial hip joint